=== PATIENT | female | born 1980 | race African-American/Black ===

== ENCOUNTER 2020-12-20 05:11 | Emergency (ER) | payer MEDICAID ==
[~2020-12-20] VITALS: Ht 170.2 cm; Wt 91.0 kg
[2020-12-20 07:22] LABS: HEMATOCRIT. 47.5 % (36.0-48.0); HEMOGLOBIN. 15.2 g/dL (12.0-16.0); MEAN CORPUSCULAR HEMOGLOBIN 32.6 pg (28.0-32.0); MEAN CORPUSCULAR VOLUME 101.7 fL (81.0-99.0); MEAN PLATELET VOLUME 9.6 fl (7.4-10.4); PLATELET 183 x1000/uL (130-400); RED BLOOD CELL COUNT 4.67 mill/uL (4.2-5.4); RED CELL DISTRIBUTION WIDTH 18.1 % (11.6-14.6)
[2020-12-20 08:17] LABS: PLATELET ESTIMATE NORMAL
[2020-12-20] MEDS ORDERED: SODIUM CHLORIDE 0.9% 1,000 ML IV ONE (09:30)
[2020-12-20 10:05] LABS: CHLORIDE 102 mEq/L (98-107)
[2020-12-20 10:09] LABS: ETHANOL BLOOD < 10 mg/dL
[2020-12-20 10:55] VITALS: BP 175/101
== END 2020-12-20 10:56 | disposition home or self-care (01) ==
LOC: ER 05:11
DX: S09.8XXA Other specified injuries of head, initial encounter (principal); E11.65 Type 2 diabetes mellitus with hyperglycemia; F14.10 Cocaine abuse, uncomplicated; I69.328 Other speech and language deficits following cerebral infarction; W01.0XXA Fall on same level from slipping, tripping and stumbling without subsequent striking against object, initial encounter; Y93.89 Activity, other specified; Y92.018 Other place in single-family (private) house as the place of occurrence of the external cause
CPT/HCPCS: 36415; 70450; 80053; 80320; 82962; 85025; 93005; 99285; J7030; A4315; G0480

== ENCOUNTER 2023-04-08 19:00 | Inpatient (IN) | payer MEDICAID ==
[~2023-04-08] VITALS: Ht 167.6 cm; Wt 102.2 kg
[~2023-04-08 19:00] MED LIST: ATOR40TA70 PO; CLOP-31 PO; CYAN100T43 PO; DIVA-75 PO; DIVA500T3 PO; FOLI-43 MT; INSU100I28 SQ; LOSA100T4 PO; OXYB5TAB17 MT; QUET300T2 PO
[2023-04-08] MEDS ORDERED: INSULIN REGULAR (HUMULIN R) 300UNITS/3ML VIAL IV ONE (19:30)
[2023-04-08] MEDS ORDERED: SODIUM CHLORIDE 0.9% 1,000 ML IV ONE ×2 (19:30→23:45)
[2023-04-08] MEDS ORDERED: FUROSEMIDE 20MG/2ML VIAL IVP ONE (20:00)
[2023-04-08 21:57] LABS: BG BASE EXCESS -27.3 mmol/L (-2.0-2.0); BG CARBOXYHEMOGLOBIN 0.7 % (0.5-1.5); BG DEOXYHEMOGLOBIN 2.4 % (0.0-5.0); BG FRACTION INSPIRED OXYGEN 21; BG METHEMOGLOBIN 0.5 % (0.0-1.5); BG OXYGEN SATURATION 97.6 % (92.0-98.5); BG OXYHEMOGLOBIN 96.4 % (94.0-97.0); BG PCO2 13.5 mmHg (35.0-45.0); BG PH 6.964 (7.350-7.450); BG PO2 128.7 mmHg (75.0-100.0); BG SAMPLE SITE RIGHT BRACHIAL; BG TOTAL HEMOGLOBIN 14.3 g/dL (12.0-18.0); BG VENT MODE ROOM AIR
[2023-04-08 23:22] LABS: CHLORIDE 95 mEq/L (98-107); INDEX HEMOLYSI 2 (1-3); INDEX ICTERIC 1 (1-4); INDEX LIPEMIC 1 (1-3); SODIUM 125 mEq/L (136-145)
[2023-04-08] MEDS ORDERED: SODIUM BICARBONATE 150 MEQ in SODIUM CHLORIDE 0.45% 1,000 ML IV SCH (23:30)
[2023-04-08 23:35] LABS: ALANINE AMINOTRANSFERASE 15 IU/L (13-61); ALBUMIN 3.3 g/dL (3.4-5.0); ASPARTATE AMINOTRANSFERASE 17 IU/L (15-37); BILIRUBIN TOTAL 0.5 mg/dL (0.1-1.0); CALCIUM 9.5 mg/dL (8.5-10.1); CREATININE 1.6 mg/dL (0.6-1.3); PROTEIN TOTAL 8.6 g/dL (6.0-8.3); UREA NITROGEN BLOOD 22 mg/dL (7-21)
[2023-04-08 23:37] LABS: HEMATOCRIT. 52.9 % (36.0-48.0); HEMOGLOBIN. 13.8 g/dL (12.0-16.0); MEAN CORPUSCULAR HEMOGLOBIN 29.9 pg (28.0-32.0); MEAN CORPUSCULAR HGB CONC 26.1 g/dL (31.0-37.0); MEAN CORPUSCULAR VOLUME 114.4 fL (81.0-99.0); MEAN PLATELET VOLUME 9.4 fl (7.4-10.4); PLATELET 282 x1000/uL (130-400); RED BLOOD CELL COUNT 4.62 mill/uL (4.2-5.4); RED CELL DISTRIBUTION WIDTH 19.8 % (11.6-14.6); WHITE BLOOD COUNT 15.7 x1000/uL (4.5-11.0)
[2023-04-08] MEDS ORDERED: SODIUM BICARBONATE 8.4% 1 MEQ/ML 50ML SYR IV NR (23:45)
[2023-04-08 23:54] LABS: DIFFERENTIAL COMMENT 1
[2023-04-09] VITALS (23 sets, daily range): BP systolic 147–191; BP diastolic 70–125; PULSE 101–127; RESP 12–18; TEMP 97.4–98.3
[2023-04-09 00:04] LABS: LACTIC ACID 2.7 mmol/L (0.4-2.0)
[2023-04-09 00:05] LABS: CARBON DIOXIDE 4 mEq/L (21-32); POTASSIUM 6.3 mEq/L (3.5-5.1)
[2023-04-09] MEDS ORDERED: INSULIN REGULAR (HUMULIN R) 300UNITS/3ML VIAL IV NR (00:45)
[2023-04-09 00:49] LABS: HCG SCREEN NEGATIVE
[2023-04-09 02:50] LABS: BETA HYDROXYBUTYRATE 2.9 mMol/L (0.0-0.3)
[2023-04-09 04:13] LABS: CHLORIDE 101 mEq/L (98-107); INDEX HEMOLYSI 4 (1-3); INDEX ICTERIC 1 (1-4); INDEX LIPEMIC 1 (1-3); SODIUM 133 mEq/L (136-145)
[2023-04-09 04:21] LABS: ALANINE AMINOTRANSFERASE 16 IU/L (13-61); ASPARTATE AMINOTRANSFERASE 27 IU/L (15-37); BILIRUBIN TOTAL 0.5 mg/dL (0.1-1.0); CALCIUM 8.9 mg/dL (8.5-10.1); CREATININE 1.6 mg/dL (0.6-1.3); PHOSPHORUS 7.1 mg/dL (2.5-4.9); PROTEIN TOTAL 7.8 g/dL (6.0-8.3); UREA NITROGEN BLOOD 23 mg/dL (7-21)
[2023-04-09 04:25] LABS: POTASSIUM 5.5 mEq/L (3.5-5.1)
[2023-04-09 04:26] LABS: CARBON DIOXIDE 6 mEq/L (21-32)
[2023-04-09 04:27] LABS: GLUCOSE 604 mg/dL (70-105)
[2023-04-09 05:31] LABS: PLATELET ESTIMATE NORMAL
[2023-04-09] MEDS ORDERED: SODIUM CHLORIDE 0.9% 1,000 ML IV ONE (07:45)
[2023-04-09 08:16] LABS: CHLORIDE 105 mEq/L (98-107); INDEX HEMOLYSI 3 (1-3); INDEX ICTERIC 1 (1-4); INDEX LIPEMIC 1 (1-3); POTASSIUM 4.1 mEq/L (3.5-5.1); SODIUM 136 mEq/L (136-145)
[2023-04-09 08:24] LABS: ALANINE AMINOTRANSFERASE 14 IU/L (13-61); ASPARTATE AMINOTRANSFERASE 25 IU/L (15-37); BILIRUBIN TOTAL 0.5 mg/dL (0.1-1.0); CALCIUM 8.9 mg/dL (8.5-10.1); CREATININE 1.4 mg/dL (0.6-1.3); GLUCOSE 308 mg/dL (70-105); PHOSPHORUS 4.2 mg/dL (2.5-4.9); PROTEIN TOTAL 7.9 g/dL (6.0-8.3); UREA NITROGEN BLOOD 25 mg/dL (7-21)
[2023-04-09 08:43] LABS: BG CARBOXYHEMOGLOBIN 0.8 % (0.5-1.5); BG DEOXYHEMOGLOBIN 1.7 % (0.0-5.0); BG HCO3 ACT 9.2 mmol/L (22.0-26.0); BG METHEMOGLOBIN 0.5 % (0.0-1.5); BG OXYGEN SATURATION 98.3 % (92.0-98.5); BG PH 7.201 (7.350-7.450); BG PO2 112.2 mmHg (75.0-100.0); BG SAMPLE SITE RIGHT RADIAL; BG TOTAL HEMOGLOBIN 13.6 g/dL (12.0-18.0); BG VENT MODE NASAL CANNULA
[2023-04-09] MEDS: SODIUM CHLORIDE 0.9% 1,000 ML IV SCH ×2 (08:47→14:40)
[2023-04-09 09:04] LABS: CARBON DIOXIDE 9 mEq/L (21-32)
[2023-04-09 09:36] LABS: BASOPHILS % 0.7 % (0.0-2.0); EOSINOPHILS % 0.3 % (0.0-5.0); HEMATOCRIT. 39.6 % (36.0-48.0); HEMOGLOBIN. 12.2 g/dL (12.0-16.0); LYMPHOCYTES % 11.1 % (20.0-50.0); MEAN CORPUSCULAR HEMOGLOBIN 29.2 pg (28.0-32.0); MEAN CORPUSCULAR HGB CONC 30.9 g/dL (31.0-37.0); MEAN CORPUSCULAR VOLUME 94.7 fL (81.0-99.0); MEAN PLATELET VOLUME 8.6 fl (7.4-10.4); NEUTROPHILS % 74.9 % (40.0-76.0); PLATELET 249 x1000/uL (130-400); RED BLOOD CELL COUNT 4.18 mill/uL (4.2-5.4); RED CELL DISTRIBUTION WIDTH 17.7 % (11.6-14.6); WHITE BLOOD COUNT 14.4 x1000/uL (4.5-11.0)
[2023-04-09 14:55] LABS: CHLORIDE 111 mEq/L (98-107); INDEX HEMOLYSI 1 (1-3); INDEX ICTERIC 1 (1-4); INDEX LIPEMIC 1 (1-3); POTASSIUM 3.9 mEq/L (3.5-5.1); SODIUM 140 mEq/L (136-145)
[2023-04-09 14:58] LABS: CARBON DIOXIDE 18 mEq/L (21-32); GLUCOSE 104 mg/dL (70-105); UREA NITROGEN BLOOD 21 mg/dL (7-21)
[2023-04-09 15:01] LABS: CREATININE 1.1 mg/dL (0.6-1.3); PHOSPHORUS 2.6 mg/dL (2.5-4.9)
[2023-04-09] MEDS ORDERED: CEFTRIAXONE 1GM PREMIX 50 ML IV SCH (15:15)
[2023-04-09] MEDS ORDERED: IPRATROPIUM/ALBUTEROL 0.5-3(2.5)MG/3ML NEB HHN PRN (15:15)
[2023-04-09] MEDS: DEXT 5%/0.9% NACL 1,000 ML IV SCH ×2 (15:38→22:25)
[2023-04-09] MEDS: HYDRALAZINE 20MG/ML VIAL IV PRN (16:01)
[2023-04-09] MEDS: INSULIN REGULAR 100U/100ML PMX 100 ML IV SCH ×2 (16:13→23:01)
[2023-04-09] MEDS: CEFTRIAXONE 1,000 MG in DEXTROSE 5% WATER 50 ML IV SCH (17:19)
[2023-04-09 20:10] LABS: CHLORIDE 111 mEq/L (98-107); INDEX HEMOLYSI 2 (1-3); INDEX ICTERIC 1 (1-4); INDEX LIPEMIC 1 (1-3); POTASSIUM 3.6 mEq/L (3.5-5.1); SODIUM 139 mEq/L (136-145)
[2023-04-09 20:15] LABS: CALCIUM 8.8 mg/dL (8.5-10.1); CARBON DIOXIDE 14 mEq/L (21-32); CREATININE 0.8 mg/dL (0.6-1.3); GLUCOSE 237 mg/dL (70-105); PHOSPHORUS 2.2 mg/dL (2.5-4.9); UREA NITROGEN BLOOD 18 mg/dL (7-21)
[2023-04-09] MEDS ORDERED: MAGNESIUM 2 G PREMIX 50 ML IV NR (22:21)
[2023-04-10] VITALS (29 sets, daily range): BP systolic 108–174; BP diastolic 45–106; PULSE 89–133; RESP 11–41; TEMP 97.4–98.5
[2023-04-10 00:22] LABS: CHLORIDE 113 mEq/L (98-107); INDEX HEMOLYSI 3 (1-3); INDEX ICTERIC 1 (1-4); INDEX LIPEMIC 1 (1-3); POTASSIUM 3.7 mEq/L (3.5-5.1); SODIUM 139 mEq/L (136-145)
[2023-04-10 00:28] LABS: CALCIUM 8.6 mg/dL (8.5-10.1); CARBON DIOXIDE 16 mEq/L (21-32); CREATININE 0.7 mg/dL (0.6-1.3); GLUCOSE 210 mg/dL (70-105); PHOSPHORUS 1.7 mg/dL (2.5-4.9); UREA NITROGEN BLOOD 17 mg/dL (7-21)
[2023-04-10] MEDS: HYDRALAZINE 20MG/ML VIAL IV PRN ×2 (03:13→08:58)
[2023-04-10] MEDS ORDERED: DIPHENHYDRAMINE 50MG/ML VIAL IV NR (05:15)
[2023-04-10] MEDS ORDERED: LORAZEPAM 2MG/ML CPJ IV NR (05:15)
[2023-04-10] MEDS: DEXT 5%/0.9% NACL 1,000 ML IV SCH (05:50)
[2023-04-10 07:03] LABS: BASOPHILS % 0.4 % (0.0-2.0); EOSINOPHILS % 0.1 % (0.0-5.0); HEMATOCRIT. 43.3 % (36.0-48.0); HEMOGLOBIN. 13.7 g/dL (12.0-16.0); LYMPHOCYTES % 8.9 % (20.0-50.0); MEAN CORPUSCULAR HEMOGLOBIN 29.5 pg (28.0-32.0); MEAN CORPUSCULAR HGB CONC 31.7 g/dL (31.0-37.0); MEAN PLATELET VOLUME 8.9 fl (7.4-10.4); MONOCYTES % 11.6 % (2.0-8.0); PLATELET 245 x1000/uL (130-400); RED BLOOD CELL COUNT 4.65 mill/uL (4.2-5.4); RED CELL DISTRIBUTION WIDTH 18.8 % (11.6-14.6); WHITE BLOOD COUNT 10.2 x1000/uL (4.5-11.0)
[2023-04-10 07:25] LABS: CHLORIDE 113 mEq/L (98-107); INDEX HEMOLYSI 2 (1-3); INDEX ICTERIC 1 (1-4); INDEX LIPEMIC 1 (1-3); POTASSIUM 3.4 mEq/L (3.5-5.1); SODIUM 137 mEq/L (136-145)
[2023-04-10 07:30] LABS: CALCIUM 9.3 mg/dL (8.5-10.1); CARBON DIOXIDE 19 mEq/L (21-32); CREATININE 0.7 mg/dL (0.6-1.3); GLUCOSE 229 mg/dL (70-105); PHOSPHORUS 1.2 mg/dL (2.5-4.9); UREA NITROGEN BLOOD 13 mg/dL (7-21)
[2023-04-10] MEDS: LOSARTAN POTASSIUM 100 MG TABLET PO SCH (08:34)
[2023-04-10] MEDS: DIPHENHYDRAMINE HCL/ZINC ACET 28 GM CREAM TOP SCH ×3 (08:34→21:27)
[2023-04-10] MEDS: CLOPIDOGREL 75MG TABLET PO SCH (08:34)
[2023-04-10] MEDS ORDERED: DEXTROSE 50% WATER 50ML SYRINGE IV PRN (08:45)
[2023-04-10] MEDS: BLOOD SUGAR DIAGNOSTIC STRIP TEST SCH ×4 (08:56→21:21)
[2023-04-10] MEDS: INSULIN LISPRO 100 UNITS/ML SUBCUT SCH ×4 (08:58→21:23)
[2023-04-10] MEDS: METOPROLOL TARTRATE 50MG TABLET PO SCH ×2 (08:58→21:21)
[2023-04-10] MEDS: INSULIN GLARGINE 100 UNITS/ML SUBCUT SCH ×2 (09:22→21:22)
[2023-04-10] MEDS ORDERED: POTASSIUM PHOS,M-BASIC-D-BASIC 20 MMOL in DEXT 5% WATER 243.3333 ML IV NR (11:00)
[2023-04-10] MEDS: CEFTRIAXONE 1,000 MG in DEXTROSE 5% WATER 50 ML IV SCH (16:03)
[2023-04-10] MEDS: DIVALPROEX SODIUM 500MG DR TABLET PO SCH (16:13)
[2023-04-10] MEDS: ATORVASTATIN CALCIUM 40MG TABLET PO SCH (21:21)
[2023-04-10] MEDS: QUETIAPINE FUMARATE 200MG TABLET PO SCH (21:21)
[2023-04-11] VITALS: BP 126/63; PULSE 88; RESP 20; TEMP 99.2
[2023-04-11 04:00] VITALS: BP 121/81; PULSE 100; RESP 20; TEMP 100.7
[2023-04-11] MEDS: DIPHENHYDRAMINE HCL/ZINC ACET 28 GM CREAM TOP SCH ×3 (06:17→21:25)
[2023-04-11] MEDS: BLOOD SUGAR DIAGNOSTIC STRIP TEST SCH ×4 (06:18→21:23)
[2023-04-11 08:00] VITALS: BP 140/95; PULSE 102; RESP 20; TEMP 97.8
[2023-04-11] MEDS: LOSARTAN POTASSIUM 100 MG TABLET PO SCH (09:04)
[2023-04-11] MEDS: METOPROLOL TARTRATE 50MG TABLET PO SCH ×2 (09:04→21:28)
[2023-04-11] MEDS: CLOPIDOGREL 75MG TABLET PO SCH (09:04)
[2023-04-11] MEDS: INSULIN LISPRO 100 UNITS/ML SUBCUT SCH ×4 (09:07→21:00)
[2023-04-11] MEDS: INSULIN GLARGINE 100 UNITS/ML SUBCUT SCH ×2 (09:08→21:24)
[2023-04-11 12:00] VITALS: BP 132/90; PULSE 100; RESP 20; TEMP 97.4
[2023-04-11 16:00] VITALS: BP 132/87; PULSE 101; RESP 20; TEMP 98
[2023-04-11] MEDS: CEFTRIAXONE 1,000 MG in DEXTROSE 5% WATER 50 ML IV SCH (17:37)
[2023-04-11] MEDS: DIVALPROEX SODIUM 500MG DR TABLET PO SCH (17:37)
[2023-04-11 20:00] VITALS: BP 132/76; PULSE 108; RESP 20; TEMP 99.3
[2023-04-11] MEDS: ATORVASTATIN CALCIUM 40MG TABLET PO SCH (21:17)
[2023-04-11] MEDS: QUETIAPINE FUMARATE 200MG TABLET PO SCH (21:18)
[2023-04-12] VITALS: BP 130/70; PULSE 100; RESP 20; TEMP 98.5
[2023-04-12 04:00] VITALS: BP 130/78; PULSE 94; RESP 20; TEMP 97.1
[2023-04-12] MEDS: BLOOD SUGAR DIAGNOSTIC STRIP TEST SCH ×4 (07:40→21:00)
[2023-04-12 08:00] VITALS: PULSE 93; TEMP 97.6
[2023-04-12] MEDS: INSULIN LISPRO 100 UNITS/ML SUBCUT SCH ×4 (08:10→21:00)
[2023-04-12] MEDS: CLOPIDOGREL 75MG TABLET PO SCH (09:00)
[2023-04-12] MEDS: LOSARTAN POTASSIUM 100 MG TABLET PO SCH (09:00)
[2023-04-12] MEDS: METOPROLOL TARTRATE 50MG TABLET PO SCH ×2 (09:00→20:54)
[2023-04-12] MEDS: INSULIN GLARGINE 100 UNITS/ML SUBCUT SCH ×2 (10:00→21:46)
[2023-04-12 12:00] VITALS: BP 158/99; PULSE 93; RESP 20; TEMP 97.6
[2023-04-12] MEDS: HYDRALAZINE 20MG/ML VIAL IV PRN (13:22)
[2023-04-12] MEDS: DIPHENHYDRAMINE HCL/ZINC ACET 28 GM CREAM TOP SCH ×2 (13:26→22:00)
[2023-04-12] MEDS ORDERED: INSU100I28 SQ (14:54)
[2023-04-12 16:00] VITALS: BP 132/74; PULSE 94; RESP 20; TEMP 97.2
[2023-04-12] MEDS: DIVALPROEX SODIUM 500MG DR TABLET PO SCH (17:21)
[2023-04-12] MEDS: CEFTRIAXONE 1,000 MG in DEXTROSE 5% WATER 50 ML IV SCH (17:22)
[2023-04-12 20:00] VITALS: BP 145/76; PULSE 89; RESP 18; TEMP 97.3
[2023-04-12] MEDS: ATORVASTATIN CALCIUM 40MG TABLET PO SCH (20:53)
[2023-04-12] MEDS: QUETIAPINE FUMARATE 200MG TABLET PO SCH (20:54)
[2023-04-13] VITALS: BP 141/84; PULSE 91; RESP 20; TEMP 97.3
[2023-04-13 04:00] VITALS: BP 125/72; PULSE 91; RESP 18; TEMP 97
[2023-04-13] MEDS: DIPHENHYDRAMINE HCL/ZINC ACET 28 GM CREAM TOP SCH ×2 (06:00→13:18)
[2023-04-13] MEDS: BLOOD SUGAR DIAGNOSTIC STRIP TEST SCH ×2 (06:42→12:13)
[2023-04-13 08:00] VITALS: BP 136/84; PULSE 97; RESP 20; TEMP 96.9
[2023-04-13] MEDS: LOSARTAN POTASSIUM 100 MG TABLET PO SCH (08:50)
[2023-04-13] MEDS: METOPROLOL TARTRATE 50MG TABLET PO SCH (08:50)
[2023-04-13] MEDS: CLOPIDOGREL 75MG TABLET PO SCH (08:50)
[2023-04-13] MEDS: INSULIN GLARGINE 100 UNITS/ML SUBCUT SCH (08:53)
[2023-04-13 12:00] VITALS: BP 137/87; PULSE 98; RESP 18; TEMP 97
[2023-04-13] MEDS: INSULIN LISPRO 100 UNITS/ML SUBCUT SCH (12:56)
[2023-04-13 13:01] VITALS: BP 137/87; PULSE 98; TEMP 97; O2SAT 99
[2023-04-13 16:00] VITALS: BP 127/81; PULSE 70; RESP 18; TEMP 97.3
== END 2023-04-13 18:21 | disposition home or self-care (01) | DRG 420 ==
LOC: ER 19:00 → MICUSO 21:47 → CVICU 04-09 12:40 → 7WST 04-10 19:15
PROVIDERS: ADMIT Internal Medicine; ATTEND Internal Medicine
DX: E11.10 Type 2 diabetes mellitus with ketoacidosis without coma (principal); R65.11 Systemic inflammatory response syndrome (SIRS) of non-infectious origin with acute organ dysfunction; G92.8 Other toxic encephalopathy; N17.9 Acute kidney failure, unspecified; E44.1 Mild protein-calorie malnutrition; E87.5 Hyperkalemia; F20.9 Schizophrenia, unspecified; E86.9 Volume depletion, unspecified; E66.9 Obesity, unspecified; I10 Essential (primary) hypertension; R06.03 Acute respiratory distress; Z20.822 Contact with and (suspected) exposure to COVID-19; R00.0 Tachycardia, unspecified; F31.9 Bipolar disorder, unspecified; Z68.36 Body mass index [BMI] 36.0-36.9, adult; J44.9 Chronic obstructive pulmonary disease, unspecified; Z86.73 Personal history of transient ischemic attack (TIA), and cerebral infarction without residual deficits
CPT/HCPCS: 36415; 36600; 71045; 80048; 80053; 82010; 82375; 82805; 82947; 82962; 83036; 83605; 83735; 84100; 84145; 84703; 85025; 87426; 99285; J0360; J0696; J1200; J1815; J2060; J3475; J3490; J7030; J7042; J7060

== ENCOUNTER 2023-04-21 19:22 | Inpatient (IN) | payer MEDICAID ==
[~2023-04-21] VITALS: Ht 165.1 cm; Wt 74.4 kg
[~2023-04-21 19:22] MED LIST changes: +LOSA-415 PO; -LOSA100T4 PO
[2023-04-21] MEDS ORDERED: SODIUM CHLORIDE 0.9% 1,000 ML IV ONE ×2 (20:00→23:15)
[2023-04-21 21:44] LABS: BASOPHILS % 0.5 % (0.0-2.0); DIFFERENTIAL COMMENT 0; EOSINOPHILS % 0.1 % (0.0-5.0); HEMATOCRIT. 45.7 % (36.0-48.0); HEMOGLOBIN. 13.1 g/dL (12.0-16.0); LYMPHOCYTES % 16.7 % (20.0-50.0); MEAN CORPUSCULAR HGB CONC 28.8 g/dL (31.0-37.0); MEAN CORPUSCULAR VOLUME 104.1 fL (81.0-99.0); MEAN PLATELET VOLUME 8.9 fl (7.4-10.4); MONOCYTES % 7.5 % (2.0-8.0); NEUTROPHILS % 75.2 % (40.0-76.0); PLATELET 228 x1000/uL (130-400); RED BLOOD CELL COUNT 4.39 mill/uL (4.2-5.4); WHITE BLOOD COUNT 10.3 x1000/uL (4.5-11.0)
[2023-04-21 21:50] VITALS: PULSE 121; RESP 18; O2SAT 96
[2023-04-21] MEDS: ALBUTEROL (0.083%) 2.5MG/3ML NEB HHN SCH ×3 (21:50→23:33)
[2023-04-21 21:55] LABS: CHLORIDE 93 mEq/L (98-107); INDEX HEMOLYSI 1 (1-3); INDEX ICTERIC 1 (1-4); INDEX LIPEMIC 1 (1-3); POTASSIUM 5.3 mEq/L (3.5-5.1); SODIUM 127 mEq/L (136-145)
[2023-04-21] MEDS ORDERED: DEXTROSE 50% WATER 50ML SYRINGE IV NR (22:00)
[2023-04-21] MEDS ORDERED: FUROSEMIDE 40MG/4ML VIAL IV NR (22:00)
[2023-04-21] MEDS ORDERED: INSULIN REGULAR (HUMULIN R) 300UNITS/3ML VIAL IV NR (22:00)
[2023-04-21 22:10] LABS: ALANINE AMINOTRANSFERASE 26 IU/L (13-61); ALBUMIN 3.5 g/dL (3.4-5.0); ASPARTATE AMINOTRANSFERASE 25 IU/L (15-37); BILIRUBIN TOTAL 0.5 mg/dL (0.1-1.0); CALCIUM 10.1 mg/dL (8.5-10.1); CREATININE 1.1 mg/dL (0.6-1.3); NT PRO B-TYPE NATRIURETIC PEP 275 pg/mL (5-125); PROTEIN TOTAL 8.7 g/dL (6.0-8.3); T4 FREE 1.41 ng/dL (0.76-1.46); TROPONIN I HIGH SENSITIVITY 32 ng/L (<54); UREA NITROGEN BLOOD 11 mg/dL (7-21)
[2023-04-21 22:14] LABS: CARBON DIOXIDE 5 mEq/L (21-32); GLUCOSE 860 mg/dL (70-105)
[2023-04-21] MEDS ORDERED: SODIUM CHLORIDE 0.9% 1,000 ML IV SCH (22:15)
[2023-04-21 22:20] VITALS: PULSE 118; RESP 18; O2SAT 97
[2023-04-21] MEDS ORDERED: INSULIN REGULAR 100U/100ML PMX 100 ML IV SCH ×3 (22:45→23:00)
[2023-04-21 22:50] VITALS: PULSE 123; RESP 18; O2SAT 97
[2023-04-21] MEDS ORDERED: POTASSIUM CHLORIDE INJ 40 MEQ in SODIUM CHLORIDE 0.9% 230 ML IV PRN (23:00)
[2023-04-21] MEDS ORDERED: SODIUM BICARBONATE 8.4% 1 MEQ/ML 50ML SYR IV NR (23:00)
[2023-04-21] MEDS ORDERED: CALCIUM GLUCONATE 1GM PREMIX 50 ML IV NR (23:00)
[2023-04-21] MEDS ORDERED: KCL 20MEQ/100ML PREMIX 100 ML IV PRN (23:00)
[2023-04-21] MEDS ORDERED: DEXTROSE 50% WATER 50ML SYRINGE IV PRN (23:00)
[2023-04-21] MEDS: BLOOD SUGAR DIAGNOSTIC STRIP TEST SCH (23:02)
[2023-04-21] MEDS: SODIUM CHLORIDE 0.9% 1,000 ML IV SCH (23:02)
[2023-04-21] MEDS ORDERED: ONDANSETRON HCL 4MG/2ML INJ IM ONE (23:15)
[2023-04-21 23:19] LABS: BG BASE EXCESS -20.6 mmol/L (-2.0-2.0); BG CARBOXYHEMOGLOBIN 0.7 % (0.5-1.5); BG DEOXYHEMOGLOBIN 1.6 % (0.0-5.0); BG FRACTION INSPIRED OXYGEN 50; BG HCO3 ACT 5.1 mmol/L (22.0-26.0); BG METHEMOGLOBIN 0.4 % (0.0-1.5); BG OXYGEN SATURATION 98.4 % (92.0-98.5); BG OXYHEMOGLOBIN 97.3 % (94.0-97.0); BG PCO2 13.5 mmHg (35.0-45.0); BG PH 7.191 (7.350-7.450); BG PO2 135.6 mmHg (75.0-100.0); BG SAMPLE SITE LEFT RADIAL; BG TOTAL HEMOGLOBIN 13.3 g/dL (12.0-18.0); BG VENT MODE MASK - SIMPLE
[2023-04-21 23:53] LABS: BASOPHILS % 0.2 % (0.0-2.0); CALCIUM 9.1 mg/dL (8.5-10.1); CHLORIDE 101 mEq/L (98-107); DIFFERENTIAL COMMENT 0; HEMATOCRIT. 42.5 % (36.0-48.0); HEMOGLOBIN. 12.3 g/dL (12.0-16.0); INDEX HEMOLYSI 2 (1-3); INDEX ICTERIC 1 (1-4); INDEX LIPEMIC 1 (1-3); LYMPHOCYTES % 12.6 % (20.0-50.0); MEAN CORPUSCULAR HEMOGLOBIN 30.6 pg (28.0-32.0); MEAN CORPUSCULAR VOLUME 105.8 fL (81.0-99.0); MEAN PLATELET VOLUME 9.4 fl (7.4-10.4); MONOCYTES % 6.9 % (2.0-8.0); NEUTROPHILS % 80.3 % (40.0-76.0); PLATELET 201 x1000/uL (130-400); POTASSIUM 4.3 mEq/L (3.5-5.1); RED BLOOD CELL COUNT 4.01 mill/uL (4.2-5.4); RED CELL DISTRIBUTION WIDTH 20.5 % (11.6-14.6); SODIUM 135 mEq/L (136-145)
[2023-04-22] VITALS (29 sets, daily range): BP systolic 105–155; BP diastolic 71–99; PULSE 100–117; RESP 11–20; TEMP 98.4–98.8
[2023-04-22] LABS: PHOSPHORUS 4.1 mg/dL (2.5-4.9); UREA NITROGEN BLOOD 10 mg/dL (7-21)
[2023-04-22] MEDS: BLOOD SUGAR DIAGNOSTIC STRIP TEST SCH ×13 (01:00→21:08)
[2023-04-22 01:08] LABS: CARBON DIOXIDE 6 mEq/L (21-32)
[2023-04-22 01:09] LABS: GLUCOSE 763 mg/dL (70-105)
[2023-04-22] MEDS: DEXT 5%/0.9% NACL 1,000 ML IV SCH ×3 (04:13→14:44)
[2023-04-22] MEDS: SODIUM CHLORIDE 0.9% 1,000 ML IV SCH ×2 (04:33→06:11)
[2023-04-22 04:55] LABS: CHLORIDE 103 mEq/L (98-107); INDEX HEMOLYSI 1 (1-3); INDEX ICTERIC 1 (1-4); INDEX LIPEMIC 1 (1-3); POTASSIUM 3.3 mEq/L (3.5-5.1); SODIUM 140 mEq/L (136-145)
[2023-04-22 05:02] LABS: CALCIUM 9.8 mg/dL (8.5-10.1); CARBON DIOXIDE 11 mEq/L (21-32); CREATININE 1.1 mg/dL (0.6-1.3); GLUCOSE 277 mg/dL (70-105); PHOSPHORUS 2.3 mg/dL (2.5-4.9); UREA NITROGEN BLOOD 10 mg/dL (7-21)
[2023-04-22] MEDS ORDERED: POTASSIUM CHLORIDE INJ 40 MEQ in DEXT 5% WATER 250 ML IV PRN (05:30)
[2023-04-22] MEDS ORDERED: LORAZEPAM 2MG/ML CPJ IV PRN (05:30)
[2023-04-22] MEDS ORDERED: ONDANSETRON HCL 4MG/2ML INJ IV PRN (05:30)
[2023-04-22] MEDS ORDERED: INSULIN REGULAR 100U/100ML PMX 100 ML IV SCH (06:45)
[2023-04-22 07:59] LABS: BG BASE EXCESS -9.4 mmol/L (-2.0-2.0); BG DEOXYHEMOGLOBIN 4.2 % (0.0-5.0); BG FRACTION INSPIRED OXYGEN 21; BG HCO3 ACT 16.6 mmol/L (22.0-26.0); BG METHEMOGLOBIN 0.3 % (0.0-1.5); BG OXYGEN SATURATION 95.8 % (92.0-98.5); BG OXYHEMOGLOBIN 95.5 % (94.0-97.0); BG PCO2 36.7 mmHg (35.0-45.0); BG PH 7.274 (7.350-7.450); BG PO2 82.1 mmHg (75.0-100.0); BG SAMPLE SITE RIGHT BRACHIAL; BG TOTAL HEMOGLOBIN 13.5 g/dL (12.0-18.0); BG VENT MODE ROOM AIR
[2023-04-22 10:06] LABS: CHLORIDE 111 mEq/L (98-107); INDEX HEMOLYSI 2 (1-3); INDEX ICTERIC 1 (1-4); INDEX LIPEMIC 1 (1-3); POTASSIUM 3.3 mEq/L (3.5-5.1); SODIUM 141 mEq/L (136-145)
[2023-04-22 10:12] LABS: CALCIUM 8.6 mg/dL (8.5-10.1); CARBON DIOXIDE 20 mEq/L (21-32); CREATININE 0.8 mg/dL (0.6-1.3); GLUCOSE 182 mg/dL (70-105); PHOSPHORUS 1.9 mg/dL (2.5-4.9); UREA NITROGEN BLOOD 8 mg/dL (7-21)
[2023-04-22] MEDS ORDERED: KCL 20MEQ/100ML PREMIX 100 ML IV NR (10:30)
[2023-04-22] MEDS ORDERED: DEXTROSE 50% WATER 50ML SYRINGE IV PRN (11:00)
[2023-04-22] MEDS ORDERED: MAGNESIUM 1 G PREMIX 100 ML IV NR (11:30)
[2023-04-22] MEDS ORDERED: INSULIN GLARGINE 100 UNITS/ML SUBCUT NR (11:30)
[2023-04-22] MEDS: INSULIN LISPRO 100 UNITS/ML SUBCUT SCH ×3 (11:44→21:09)
[2023-04-22] MEDS ORDERED: POTASSIUM PHOS,M-BASIC-D-BASIC 15 MMOL in DEXT 5% WATER 245 ML IV NR (12:30)
[2023-04-22] MEDS ORDERED: IPRATROPIUM/ALBUTEROL 0.5-3(2.5)MG/3ML NEB HHN PRN (13:00)
[2023-04-22] MEDS: PANTOPRAZOLE SODIUM 40 MG/VIAL IV SCH (13:30)
[2023-04-22 14:33] LABS: CHLORIDE 110 mEq/L (98-107); INDEX HEMOLYSI 2 (1-3); INDEX ICTERIC 1 (1-4); INDEX LIPEMIC 1 (1-3); POTASSIUM 4.4 mEq/L (3.5-5.1); SODIUM 140 mEq/L (136-145)
[2023-04-22 14:39] LABS: CALCIUM 8.6 mg/dL (8.5-10.1); CARBON DIOXIDE 20 mEq/L (21-32); CREATININE 0.7 mg/dL (0.6-1.3); GLUCOSE 183 mg/dL (70-105); UREA NITROGEN BLOOD 8 mg/dL (7-21)
[2023-04-22 18:21] LABS: CHLORIDE 110 mEq/L (98-107); INDEX HEMOLYSI 2 (1-3); INDEX ICTERIC 1 (1-4); INDEX LIPEMIC 1 (1-3); POTASSIUM 4.3 mEq/L (3.5-5.1); SODIUM 136 mEq/L (136-145)
[2023-04-22 18:26] LABS: CALCIUM 7.9 mg/dL (8.5-10.1); CARBON DIOXIDE 17 mEq/L (21-32); CREATININE 0.7 mg/dL (0.6-1.3); GLUCOSE 322 mg/dL (70-105); PHOSPHORUS 3.1 mg/dL (2.5-4.9); UREA NITROGEN BLOOD 6 mg/dL (7-21)
[2023-04-23] VITALS: BP 131/87; PULSE 111; RESP 17; TEMP 98.6
[2023-04-23] MEDS: DEXT 5%/0.9% NACL 1,000 ML IV SCH (03:50)
[2023-04-23 04:00] VITALS: BP 142/90; PULSE 108; RESP 19; TEMP 98.9
[2023-04-23 06:58] LABS: CHLORIDE 106 mEq/L (98-107); INDEX HEMOLYSI 1 (1-3); INDEX ICTERIC 1 (1-4); INDEX LIPEMIC 1 (1-3); POTASSIUM 3.9 mEq/L (3.5-5.1); SODIUM 137 mEq/L (136-145)
[2023-04-23 07:05] LABS: CALCIUM 8.7 mg/dL (8.5-10.1); CARBON DIOXIDE 20 mEq/L (21-32); CREATININE 0.7 mg/dL (0.6-1.3); GLUCOSE 265 mg/dL (70-105); PHOSPHORUS 1.7 mg/dL (2.5-4.9); UREA NITROGEN BLOOD 6 mg/dL (7-21)
[2023-04-23] MEDS: BLOOD SUGAR DIAGNOSTIC STRIP TEST SCH ×4 (07:40→21:00)
[2023-04-23 08:00] VITALS: BP 161/88; PULSE 114; RESP 18; TEMP 97.6
[2023-04-23] MEDS: PANTOPRAZOLE SODIUM 40 MG/VIAL IV SCH (08:57)
[2023-04-23] MEDS: QUETIAPINE FUMARATE 50MG TABLET PO SCH (09:00)
[2023-04-23] MEDS: INSULIN LISPRO 100 UNITS/ML SUBCUT SCH ×4 (09:00→21:39)
[2023-04-23] MEDS: LOSARTAN 100 MG TABLET PO SCH (09:37)
[2023-04-23] MEDS: DIVALPROEX SODIUM 500MG DR TABLET PO SCH ×2 (09:38→18:00)
[2023-04-23] MEDS: CLOPIDOGREL 75MG TABLET PO SCH (09:38)
[2023-04-23 12:00] VITALS: BP 157/82; PULSE 114; PULSE 83; RESP 18; RESP 20; TEMP 97
[2023-04-23] MEDS: INSULIN GLARGINE 100 UNITS/ML SUBCUT SCH ×2 (12:28→21:37)
[2023-04-23 16:00] VITALS: BP 128/87; PULSE 108; RESP 18; TEMP 98.3
[2023-04-23] MEDS ORDERED: SODIUM BICARBONATE 8.4% 1 MEQ/ML 50ML SYR IV NR (19:30)
[2023-04-23 20:00] VITALS: BP 133/85; PULSE 103; RESP 18; TEMP 98.5
[2023-04-23] MEDS: ATORVASTATIN CALCIUM 40MG TABLET PO SCH (21:27)
[2023-04-24] VITALS: BP 136/71; PULSE 95; RESP 18; TEMP 97.8
[2023-04-24 04:00] VITALS: BP 141/67; PULSE 102; RESP 19; TEMP 98.8
[2023-04-24 06:50] LABS: BASOPHILS % 0.3 % (0.0-2.0); EOSINOPHILS % 0.8 % (0.0-5.0); HEMATOCRIT. 38.2 % (36.0-48.0); HEMOGLOBIN. 12.5 g/dL (12.0-16.0); LYMPHOCYTES % 40.1 % (20.0-50.0); MEAN CORPUSCULAR HEMOGLOBIN 30.2 pg (28.0-32.0); MEAN CORPUSCULAR HGB CONC 32.8 g/dL (31.0-37.0); MEAN CORPUSCULAR VOLUME 92.1 fL (81.0-99.0); MEAN PLATELET VOLUME 8.1 fl (7.4-10.4); MONOCYTES % 7.7 % (2.0-8.0); NEUTROPHILS % 51.1 % (40.0-76.0); PLATELET 139 x1000/uL (130-400); RED BLOOD CELL COUNT 4.15 mill/uL (4.2-5.4); RED CELL DISTRIBUTION WIDTH 18.9 % (11.6-14.6); WHITE BLOOD COUNT 4.8 x1000/uL (4.5-11.0)
[2023-04-24] MEDS: INSULIN LISPRO 100 UNITS/ML SUBCUT SCH ×4 (07:26→20:15)
[2023-04-24] MEDS: BLOOD SUGAR DIAGNOSTIC STRIP TEST SCH ×4 (07:26→20:21)
[2023-04-24 07:45] LABS: CHLORIDE 117 mEq/L (98-107); INDEX HEMOLYSI 1 (1-3); INDEX ICTERIC 1 (1-4); INDEX LIPEMIC 1 (1-3); POTASSIUM 3.3 mEq/L (3.5-5.1); SODIUM 141 mEq/L (136-145)
[2023-04-24 07:54] LABS: ALBUMIN 2.3 g/dL (3.4-5.0); CALCIUM 8.6 mg/dL (8.5-10.1); CARBON DIOXIDE 25 mEq/L (21-32); CREATININE 0.7 mg/dL (0.6-1.3); GLUCOSE 111 mg/dL (70-105); UREA NITROGEN BLOOD 3 mg/dL (7-21)
[2023-04-24 08:00] VITALS: BP_SYST 146; BP_SYST 89; BP_DIAS 55; BP_DIAS 82; PULSE 61; PULSE 91; RESP 20; TEMP 97.7; TEMP 98.6
[2023-04-24] MEDS: LOSARTAN 100 MG TABLET PO SCH (09:02)
[2023-04-24] MEDS: FAMOTIDINE 20MG/2ML VIAL IV SCH ×2 (09:02→20:13)
[2023-04-24] MEDS: QUETIAPINE FUMARATE 50MG TABLET PO SCH (09:02)
[2023-04-24] MEDS: CLOPIDOGREL 75MG TABLET PO SCH (09:02)
[2023-04-24] MEDS: DIVALPROEX SODIUM 500MG DR TABLET PO SCH ×2 (09:02→17:09)
[2023-04-24] MEDS: INSULIN GLARGINE 100 UNITS/ML SUBCUT SCH ×2 (09:20→22:42)
[2023-04-24 12:00] VITALS: BP 128/87; PULSE 105; RESP 20; TEMP 98.6
[2023-04-24 15:34] LABS: PREALBUMIN 11.5 mg/dL (20.0-40.0)
[2023-04-24 16:00] VITALS: BP 136/78; PULSE 103; RESP 20; TEMP 97.9
[2023-04-24 19:02] VITALS: BP 127/67; PULSE 94; RESP 18; TEMP 98.1
[2023-04-24] MEDS: ATORVASTATIN CALCIUM 40MG TABLET PO SCH (20:13)
[2023-04-25] VITALS: BP 129/72; PULSE 110; RESP 18; TEMP 99.1
[2023-04-25 04:00] VITALS: BP 144/89; PULSE 103; RESP 18; TEMP 98.6
[2023-04-25 08:00] VITALS: BP 134/90; PULSE 110; RESP 20; TEMP 97.2
[2023-04-25] MEDS: BLOOD SUGAR DIAGNOSTIC STRIP TEST SCH ×4 (08:00→20:50)
[2023-04-25] MEDS: INSULIN LISPRO 100 UNITS/ML SUBCUT SCH ×4 (08:10→20:50)
[2023-04-25] MEDS: QUETIAPINE FUMARATE 50MG TABLET PO SCH (09:43)
[2023-04-25] MEDS: LOSARTAN 100 MG TABLET PO SCH (09:43)
[2023-04-25] MEDS: DIVALPROEX SODIUM 500MG DR TABLET PO SCH ×2 (09:44→17:49)
[2023-04-25] MEDS: CLOPIDOGREL 75MG TABLET PO SCH (09:44)
[2023-04-25] MEDS: FAMOTIDINE 20MG/2ML VIAL IV SCH ×2 (09:44→20:45)
[2023-04-25] MEDS: INSULIN GLARGINE 100 UNITS/ML SUBCUT SCH ×2 (09:46→20:50)
[2023-04-25 12:00] VITALS: BP 110/81; PULSE 86; RESP 18; TEMP 97
[2023-04-25 16:00] VITALS: BP 119/87; PULSE 98; RESP 20; TEMP 97
[2023-04-25 20:15] VITALS: BP 142/87; PULSE 96; RESP 18; TEMP 98.1
[2023-04-25] MEDS: ATORVASTATIN CALCIUM 40MG TABLET PO SCH (20:44)
[2023-04-26 04:15] VITALS: BP 126/81; PULSE 95; RESP 18; TEMP 97.9
[2023-04-26] MEDS: BLOOD SUGAR DIAGNOSTIC STRIP TEST SCH ×4 (07:58→21:05)
[2023-04-26] MEDS: INSULIN LISPRO 100 UNITS/ML SUBCUT SCH ×4 (07:59→21:12)
[2023-04-26 08:00] VITALS: BP 158/88; PULSE 94; RESP 18; TEMP 97.3
[2023-04-26] MEDS: CLOPIDOGREL 75MG TABLET PO SCH (08:38)
[2023-04-26] MEDS: LOSARTAN 100 MG TABLET PO SCH (08:38)
[2023-04-26] MEDS: QUETIAPINE FUMARATE 50MG TABLET PO SCH (08:38)
[2023-04-26] MEDS: DIVALPROEX SODIUM 500MG DR TABLET PO SCH ×2 (08:39→18:05)
[2023-04-26] MEDS: FAMOTIDINE 20MG/2ML VIAL IV SCH (08:39)
[2023-04-26] MEDS: INSULIN GLARGINE 100 UNITS/ML SUBCUT SCH ×2 (11:49→21:11)
[2023-04-26 12:00] VITALS: BP 150/77; PULSE 96; RESP 20; TEMP 97.6
[2023-04-26 16:00] VITALS: BP 139/84; PULSE 95; RESP 19; TEMP 96.3
[2023-04-26] MEDS ORDERED: QUETIAPINE FUMARATE 200MG TABLET PO SCH (19:06)
[2023-04-26 20:00] VITALS: BP 132/83; PULSE 85; RESP 18; TEMP 97.8
[2023-04-26] MEDS: ATORVASTATIN CALCIUM 40MG TABLET PO SCH (21:06)
[2023-04-26] MEDS: FAMOTIDINE 20MG TABLET PO SCH (21:06)
[2023-04-27] MEDS: BLOOD SUGAR DIAGNOSTIC STRIP TEST SCH ×4 (07:00→21:23)
[2023-04-27] MEDS: INSULIN LISPRO 100 UNITS/ML SUBCUT SCH ×4 (07:50→21:22)
[2023-04-27 08:00] VITALS: BP 142/88; PULSE 89; RESP 20; TEMP 97.9
[2023-04-27] MEDS: CLOPIDOGREL 75MG TABLET PO SCH (08:53)
[2023-04-27] MEDS: FAMOTIDINE 20MG TABLET PO SCH ×2 (08:53→21:16)
[2023-04-27] MEDS: DIVALPROEX SODIUM 500MG DR TABLET PO SCH ×2 (08:53→17:48)
[2023-04-27] MEDS: LOSARTAN 100 MG TABLET PO SCH (08:54)
[2023-04-27] MEDS: INSULIN GLARGINE 100 UNITS/ML SUBCUT SCH ×2 (10:21→21:22)
[2023-04-27 16:00] VITALS: BP 146/90; PULSE 114; RESP 20; TEMP 97.9
[2023-04-27 20:00] VITALS: BP 143/74; PULSE 90; RESP 18; TEMP 99
[2023-04-27] MEDS: ATORVASTATIN CALCIUM 40MG TABLET PO SCH (21:16)
[2023-04-28 04:00] VITALS: BP 109/79; PULSE 89; RESP 18; TEMP 97.9
[2023-04-28] MEDS: BLOOD SUGAR DIAGNOSTIC STRIP TEST SCH ×4 (06:41→21:00)
[2023-04-28] MEDS: INSULIN LISPRO 100 UNITS/ML SUBCUT SCH ×4 (06:59→21:00)
[2023-04-28 08:00] VITALS: BP 112/75; PULSE 94; RESP 20; TEMP 97.9
[2023-04-28] MEDS: FAMOTIDINE 20MG TABLET PO SCH ×2 (08:48→20:42)
[2023-04-28] MEDS: CLOPIDOGREL 75MG TABLET PO SCH (08:48)
[2023-04-28] MEDS: LOSARTAN 100 MG TABLET PO SCH (08:49)
[2023-04-28] MEDS: DIVALPROEX SODIUM 500MG DR TABLET PO SCH ×2 (08:52→17:00)
[2023-04-28] MEDS: ACETAMINOPHEN 325MG TABLET PO PRN (08:53)
[2023-04-28] MEDS: INSULIN GLARGINE 100 UNITS/ML SUBCUT SCH ×2 (10:00→22:00)
[2023-04-28 12:00] VITALS: BP 122/96; PULSE 90; RESP 20; TEMP 98.2
[2023-04-28 16:00] VITALS: BP 135/83; PULSE 90; RESP 20; TEMP 97.9
[2023-04-28 20:00] VITALS: BP 182/97; PULSE 105; RESP 18; TEMP 97.9
[2023-04-28] MEDS: QUETIAPINE FUMARATE 50MG TABLET PO SCH (20:42)
[2023-04-28] MEDS: ATORVASTATIN CALCIUM 40MG TABLET PO SCH (20:42)
[2023-04-28] MEDS: QUETIAPINE FUMARATE 200MG TABLET PO SCH (20:43)
[2023-04-29] VITALS: BP 99/61; PULSE 94; RESP 17; TEMP 99.1
[2023-04-29] MEDS: BLOOD SUGAR DIAGNOSTIC STRIP TEST SCH ×4 (07:20→21:07)
[2023-04-29 07:48] VITALS: BP 143/68; PULSE 84; RESP 18; TEMP 97.9
[2023-04-29] MEDS: CLOPIDOGREL 75MG TABLET PO SCH (08:51)
[2023-04-29] MEDS: DIVALPROEX SODIUM 500MG DR TABLET PO SCH ×2 (08:51→17:00)
[2023-04-29] MEDS: FAMOTIDINE 20MG TABLET PO SCH ×2 (08:51→20:43)
[2023-04-29] MEDS: ACETAMINOPHEN 325MG TABLET PO PRN (08:52)
[2023-04-29] MEDS: LOSARTAN 100 MG TABLET PO SCH (09:00)
[2023-04-29] MEDS: INSULIN GLARGINE 100 UNITS/ML SUBCUT SCH ×2 (10:00→21:31)
[2023-04-29 12:10] VITALS: BP 117/87; PULSE 87; RESP 18; TEMP 97
[2023-04-29] MEDS: INSULIN LISPRO 100 UNITS/ML SUBCUT SCH ×3 (12:15→21:31)
[2023-04-29 16:20] VITALS: BP 133/66; PULSE 87; RESP 18; TEMP 97
[2023-04-29 20:00] VITALS: BP 130/84; PULSE 94; RESP 18; TEMP 99
[2023-04-29] MEDS: QUETIAPINE FUMARATE 200MG TABLET PO SCH (20:43)
[2023-04-29] MEDS: QUETIAPINE FUMARATE 50MG TABLET PO SCH (20:44)
[2023-04-29] MEDS: ATORVASTATIN CALCIUM 40MG TABLET PO SCH (20:44)
[2023-04-30] VITALS: BP 135/79; PULSE 96; RESP 18; TEMP 98.4
[2023-04-30] MEDS: BLOOD SUGAR DIAGNOSTIC STRIP TEST SCH ×4 (07:20→21:35)
[2023-04-30 08:00] VITALS: BP 138/91; PULSE 99; RESP 19; TEMP 97.9
[2023-04-30] MEDS: DIVALPROEX SODIUM 500MG DR TABLET PO SCH ×2 (09:35→17:11)
[2023-04-30] MEDS: LOSARTAN 100 MG TABLET PO SCH (09:35)
[2023-04-30] MEDS: FAMOTIDINE 20MG TABLET PO SCH ×2 (09:35→21:24)
[2023-04-30] MEDS: CLOPIDOGREL 75MG TABLET PO SCH (09:36)
[2023-04-30] MEDS: INSULIN LISPRO 100 UNITS/ML SUBCUT SCH ×4 (10:13→21:34)
[2023-04-30] MEDS: INSULIN GLARGINE 100 UNITS/ML SUBCUT SCH ×2 (10:26→21:34)
[2023-04-30 12:00] VITALS: BP 127/91; PULSE 101; RESP 18; TEMP 97.7
[2023-04-30 16:00] VITALS: BP 118/74; PULSE 70; RESP 19; TEMP 98.2
[2023-04-30 20:00] VITALS: BP 137/82; PULSE 95; RESP 20; TEMP 97.7
[2023-04-30] MEDS: QUETIAPINE FUMARATE 200MG TABLET PO SCH (21:23)
[2023-04-30] MEDS: QUETIAPINE FUMARATE 50MG TABLET PO SCH (21:23)
[2023-04-30] MEDS: ATORVASTATIN CALCIUM 40MG TABLET PO SCH (21:24)
[2023-05-01 04:00] VITALS: BP 126/76; PULSE 86; RESP 19; TEMP 97.8
[2023-05-01 08:00] VITALS: BP 111/70; PULSE 95; RESP 20; TEMP 97.5
[2023-05-01] MEDS: BLOOD SUGAR DIAGNOSTIC STRIP TEST SCH ×4 (08:19→20:24)
[2023-05-01] MEDS: CLOPIDOGREL 75MG TABLET PO SCH (09:31)
[2023-05-01] MEDS: FAMOTIDINE 20MG TABLET PO SCH ×2 (09:31→21:06)
[2023-05-01] MEDS: DIVALPROEX SODIUM 500MG DR TABLET PO SCH ×2 (09:32→18:01)
[2023-05-01] MEDS: INSULIN LISPRO 100 UNITS/ML SUBCUT SCH ×4 (09:32→21:12)
[2023-05-01] MEDS: LOSARTAN 100 MG TABLET PO SCH (09:32)
[2023-05-01] MEDS: INSULIN GLARGINE 100 UNITS/ML SUBCUT SCH ×2 (11:26→21:13)
[2023-05-01 12:00] VITALS: BP 118/84; PULSE 97; RESP 18; TEMP 98
[2023-05-01 16:00] VITALS: BP 115/80; PULSE 84; RESP 20; TEMP 97
[2023-05-01 20:00] VITALS: BP 117/69; PULSE 98; RESP 18; TEMP 97.7
[2023-05-01] MEDS: QUETIAPINE FUMARATE 50MG TABLET PO SCH (21:05)
[2023-05-01] MEDS: ATORVASTATIN CALCIUM 40MG TABLET PO SCH (21:06)
[2023-05-01] MEDS: QUETIAPINE FUMARATE 200MG TABLET PO SCH (21:06)
[2023-05-02] VITALS: PULSE 99; RESP 18; TEMP 97.2
[2023-05-02] MEDS: ACETAMINOPHEN 325MG TABLET PO PRN (02:06)
[2023-05-02] MEDS: BLOOD SUGAR DIAGNOSTIC STRIP TEST SCH (07:03)
[2023-05-02] MEDS: INSULIN LISPRO 100 UNITS/ML SUBCUT SCH (07:50)
[2023-05-02] MEDS: FAMOTIDINE 20MG TABLET PO SCH (09:00)
[2023-05-02] MEDS: INSULIN GLARGINE 100 UNITS/ML SUBCUT SCH (10:00)
[2023-05-02] MEDS: CLOPIDOGREL 75MG TABLET PO SCH (10:03)
[2023-05-02] MEDS: LOSARTAN 100 MG TABLET PO SCH (10:04)
[2023-05-02] MEDS: DIVALPROEX SODIUM 500MG DR TABLET PO SCH (10:04)
== END 2023-05-02 12:22 | disposition home health service (06) | DRG 420 ==
LOC: ER 19:38 → MICUSO 22:51 → CVICU 04-22 03:55 → 7WST 04-23 00:47 → 6EST 04-26 10:25 → 6WST 04-26 10:55
PROVIDERS: ADMIT Internal Medicine; ATTEND Internal Medicine
PROC: B54BZZA Ultrasonography of Right Lower Extremity Veins, Guidance (ICD-10-PCS; principal; 2023-04-21)
PROC: 06HY33Z Insertion of Infusion Device into Lower Vein, Percutaneous Approach (ICD-10-PCS; 2023-04-21)
DX: E11.10 Type 2 diabetes mellitus with ketoacidosis without coma (principal); J96.00 Acute respiratory failure, unspecified whether with hypoxia or hypercapnia; G93.41 Metabolic encephalopathy; E03.9 Hypothyroidism, unspecified; E78.5 Hyperlipidemia, unspecified; I10 Essential (primary) hypertension; F41.9 Anxiety disorder, unspecified; G47.10 Hypersomnia, unspecified; Z79.02 Long term (current) use of antithrombotics/antiplatelets; Z79.82 Long term (current) use of aspirin; Z86.73 Personal history of transient ischemic attack (TIA), and cerebral infarction without residual deficits
CPT/HCPCS: 36415; 36600; 71045; 80048; 80051; 80053; 82010; 82040; 82375; 82805; 82962; 83036; 83735; 83880; 83930; 84100; 84134; 84439; 84443; 84484; 85025; 93005; 94640; 99291; A6261; C9113; J0610; J1815; J1940; J2405; J3475; J3480; J3490; J7030; J7042; J7060

== ENCOUNTER 2023-05-04 12:39 | Emergency (ER) | payer MEDICAID ==
[~2023-05-04] VITALS: Ht 170.2 cm; Wt 89.0 kg
[2023-05-04 12:40] VITALS: BP 165/100; TEMP 98.7; O2SAT 98
[2023-05-04 12:52] VITALS: PULSE 118; RESP 20
[2023-05-04] MEDS ORDERED: CEPH500T MT ×2 (14:35→14:40)
== END 2023-05-04 15:53 | disposition left against medical advice (07) ==
LOC: ER 12:39
DX: R21 Rash and other nonspecific skin eruption (principal); E11.65 Type 2 diabetes mellitus with hyperglycemia; R10.31 Right lower quadrant pain; I25.2 Old myocardial infarction; I10 Essential (primary) hypertension; E11.9 Type 2 diabetes mellitus without complications; Z79.899 Other long term (current) drug therapy; Z86.73 Personal history of transient ischemic attack (TIA), and cerebral infarction without residual deficits
CPT/HCPCS: 82962; 99281; 99282

== ENCOUNTER 2024-07-07 15:17 | Inpatient (IN) | payer MEDICAID ==
[~2024-07-07] VITALS: Ht 162.6 cm; Wt 69.4 kg
[~2024-07-07 15:17] MED LIST changes: +ASPI-1406 PO; -ATOR40TA70 PO; -CLOP-31 PO; +COR12 PO; -CYAN100T43 PO; +DIVA-18 PO; -DIVA-75 PO; -DIVA500T3 PO; +EMPA10TA PO; +FAMO20TA8 PO; -FOLI-43 MT; +FOLI-43 PO; +INSU100I13 SQ; +LEVO88TA7 PO; +LIP40 PO; -LOSA-415 PO; +LOSA50TA41 PO; +METF-414 PO; -OXYB5TAB17 MT; +QUET200T30 PO; -QUET300T2 PO
[2024-07-07 17:35] LABS: BASOPHILS % 0.3 % (0.0-2.0); EOSINOPHILS % 0.1 % (0.0-5.0); HEMATOCRIT. 37.5 % (36.0-48.0); HEMOGLOBIN. 12.1 g/dL (12.0-16.0); LYMPHOCYTES % 12.6 % (20.0-50.0); MEAN CORPUSCULAR HEMOGLOBIN 30.9 pg (28.0-32.0); MEAN CORPUSCULAR HGB CONC 32.2 g/dL (31.0-37.0); MEAN CORPUSCULAR VOLUME 95.9 fL (81.0-99.0); MEAN PLATELET VOLUME 7.7 fl (7.4-10.4); MONOCYTES % 3.5 % (2.0-8.0); NEUTROPHILS % 83.5 % (40.0-76.0); PLATELET 495 x1000/uL (130-400); RED BLOOD CELL COUNT 3.91 mill/uL (4.2-5.4); RED CELL DISTRIBUTION WIDTH 18.4 % (11.6-14.6); WHITE BLOOD COUNT 12.2 x1000/uL (4.5-11.0)
[2024-07-07] MEDS: SODIUM CHLORIDE 0.9% 1,000 ML IV ONE ×3 (17:39→19:32)
[2024-07-07] MEDS ORDERED: ONDANSETRON HCL 4MG/2ML INJ IV PRN (19:00)
[2024-07-07] MEDS ORDERED: DOCUSATE SODIUM 100MG CAPSULE PO PRN (19:00)
[2024-07-07] MEDS ORDERED: GUAIFENESIN 200MG/10ML SUGAR FREE UDC PO PRN (19:00)
[2024-07-07] MEDS: CEFTRIAXONE 1GM/50ML 50 ML IV ONE (19:09)
[2024-07-07] MEDS: SODIUM CHLORIDE 0.9% 250 ML IV ONE (19:32)
[2024-07-07] MEDS: INSULIN GLARGINE 100 UNITS/ML SUBCUT SCH (22:00)
[2024-07-07] MEDS: QUETIAPINE FUMARATE 50MG TABLET PO SCH (22:00)
[2024-07-07] MEDS: RISPERIDONE 1MG TABLET PO SCH (22:01)
[2024-07-07] MEDS: BLOOD SUGAR DIAGNOSTIC STRIP TEST SCH (22:03)
[2024-07-07] MEDS: INSULIN LISPRO 100 UNITS/ML SUBCUT SCH (22:12)
[2024-07-07] MEDS: ATORVASTATIN CALCIUM 40MG TABLET PO SCH (22:57)
[2024-07-07] MEDS: ACETAMINOPHEN 325MG TABLET PO PRN (22:58)
[2024-07-08] MEDS: CARVEDILOL 12.5MG TABLET PO SCH (01:38)
[2024-07-08] MEDS: IPRATROPIUM BROMIDE (0.02%) 0.5MG/2.5ML NEB HHN SCH (02:00)
[2024-07-08 04:15] VITALS: BP 136/89; PULSE 100; RESP 18; TEMP 36.4736
[2024-07-08] MEDS: LEVOTHYROXINE SODIUM 88MCG TABLET PO SCH (06:26)
[2024-07-08 07:27] LABS: CARBON DIOXIDE 21 mEq/L (21-32); CHLORIDE 108 mEq/L (98-107); POTASSIUM 4.7 mEq/L (3.5-5.1); SODIUM 138 mEq/L (136-145)
[2024-07-08 07:28] LABS: CALCIUM 8.9 mg/dL (8.7-10.4)
[2024-07-08 07:30] LABS: TROPONIN I HIGH SENSITIVITY 12 ng/L (3.0-34)
[2024-07-08 07:33] LABS: GLUCOSE 110 mg/dL (70-105); THYROID STIMULATING HORMONE 0.16 uIU/mL (0.55-4.78)
[2024-07-08 07:49] LABS: BASOPHILS % 0.5 % (0.0-2.0); EOSINOPHILS % 1.1 % (0.0-5.0); HEMOGLOBIN. 10.6 g/dL (12.0-16.0); LYMPHOCYTES % 30.2 % (20.0-50.0); MEAN CORPUSCULAR HEMOGLOBIN 30.6 pg (28.0-32.0); MEAN CORPUSCULAR HGB CONC 31.3 g/dL (31.0-37.0); MEAN CORPUSCULAR VOLUME 97.7 fL (81.0-99.0); MEAN PLATELET VOLUME 8.4 fl (7.4-10.4); NEUTROPHILS % 59.2 % (40.0-76.0); PLATELET 450 x1000/uL (130-400); RED BLOOD CELL COUNT 3.48 mill/uL (4.2-5.4); RED CELL DISTRIBUTION WIDTH 17.1 % (11.6-14.6); WHITE BLOOD COUNT 8.6 x1000/uL (4.5-11.0)
[2024-07-08 08:00] VITALS: BP 131/82; PULSE 71; TEMP 36.89184; O2SAT 100
[2024-07-08 08:13] LABS: UREA NITROGEN BLOOD 6 mg/dL (9-23)
[2024-07-08] MEDS: MULTIVITAMINS,THER W-MINERALS TABLET PO SCH (10:12)
[2024-07-08] MEDS: ENOXAPARIN 40MG/0.4ML SYR SUBCUT SCH (10:13)
[2024-07-08] MEDS: FAMOTIDINE 20MG TABLET PO SCH (10:40)
[2024-07-08 12:00] VITALS: PULSE 110; RESP 20; TEMP 37.00296; O2SAT 99
[2024-07-08 16:00] VITALS: BP 137/82; PULSE 61; RESP 18; TEMP 36.3918; O2SAT 100
[2024-07-08] MEDS: CEFTRIAXONE 1GM/50ML 50 ML IV SCH (19:40)
[2024-07-08] MEDS: ACETAMINOPHEN 325MG TABLET PO PRN (21:57)
[2024-07-08] MEDS: ATORVASTATIN CALCIUM 40MG TABLET PO SCH (21:58)
[2024-07-09 12:02] VITALS: BP 144/78; PULSE 88; RESP 18; TEMP 37.00296; O2SAT 99
[2024-07-09 16:00] VITALS: BP 139/106; PULSE 108; RESP 18; TEMP 37.00296; O2SAT 99
[2024-07-09] MEDS: DIVALPROEX SODIUM 500MG DR TABLET PO SCH (20:30)
[2024-07-09 20:40] VITALS: PULSE 90; RESP 20; O2SAT 99
[2024-07-10 02:13] VITALS: PULSE 87; RESP 20; O2SAT 99
[2024-07-10 08:00] VITALS: BP 92/46; PULSE 70; RESP 16; TEMP 37.00296; O2SAT 98
[2024-07-10 09:33] VITALS: PULSE 92; RESP 20
[2024-07-10 14:54] VITALS: PULSE 95; RESP 20
[2024-07-10 16:00] VITALS: BP 120/78; PULSE 65; RESP 16; TEMP 36.89184; O2SAT 98
[2024-07-10 21:35] VITALS: BP 146/79; PULSE 114; RESP 20; TEMP 36.6696; O2SAT 100
[2024-07-11] VITALS (8 sets, daily range): BP systolic 97–146; BP diastolic 56–81; PULSE 78–112; RESP 18–20; TEMP 36.28068–36.6696; O2SAT 98–100
[2024-07-12] VITALS (7 sets, daily range): BP systolic 118–144; BP diastolic 70–85; PULSE 80–97; RESP 16–20; TEMP 36.114–36.72516; O2SAT 95–100
[2024-07-12 13:42] LABS: CLARITY URINE TURBID (CLEAR); COLOR URINE YELLOW (YELLOW); GLUCOSE URINE NEGATIVE (NEGATIVE); KETONES URINE NEGATIVE (NEGATIVE); LEUKOCYTE ESTERASE URINE 3+ (NEGATIVE); NITRITE URINE NEGATIVE (NEGATIVE); OCCULT BLOOD URINE 1+ (NEGATIVE); PH URINE 6.5 (4.5-8.0); PROTEIN URINE TRACE (NEGATIVE); SPECIFIC GRAVITY URINE 1.008 (1.005-1.030); UROBILINOGEN URINE 0.2 E.U./dL (0.2-1.0)
[2024-07-12 13:51] LABS: *AMPHETAMINES SCREEN URINE NEGATIVE (NEGATIVE); *BARBITURATES SCREEN URINE NEGATIVE (NEGATIVE); *BENZODIAZEPINES SCREEN URINE NEGATIVE (NEGATIVE); *COCAINE SCREEN URINE NEGATIVE (NEGATIVE); METHADONE URINE SCREEN NEGATIVE (NEGATIVE); OPIATES URINE SCREEN NEGATIVE (NEGATIVE)
[2024-07-12 13:52] LABS: CANNABINOID URINE SCREEN NEGATIVE (NEGATIVE); ECSTASY MDMA SCREEN URINE NEGATIVE (NEGATIVE); PHENCYCLIDINE URINE SCREEN NEGATIVE (NEGATIVE)
[2024-07-12 14:00] LABS: SQUAMOUS EPITHELIAL CELL URINE 3+ /lpf (RARE/1+)
[2024-07-12 14:02] LABS: WBC URINE 50-100 /hpf (0-2)
[2024-07-12 14:03] LABS: BACTERIA URINE 4+; YEAST URINE RARE
[2024-07-13 04:00] VITALS: BP 120/72; PULSE 104; RESP 18; TEMP 36.22512; O2SAT 99
[2024-07-13 08:00] VITALS: BP 145/86; PULSE 113; RESP 18; TEMP 36.44736; O2SAT 99
[2024-07-13] MEDS: SULFAMETHOXAZOLE/TRIMETHOPRIM 800/160MG TABLET PO SCH (09:00)
[2024-07-13] MEDS ORDERED: CEFTRIAXONE 1GM/50ML 50 ML IV SCH (10:00)
[2024-07-13 12:00] VITALS: BP 126/83; PULSE 93; RESP 18; TEMP 36.50292; O2SAT 96
[2024-07-13 20:00] VITALS: BP 146/94; PULSE 109; RESP 18; TEMP 36.61404; O2SAT 96
[2024-07-14] VITALS: BP 152/94; PULSE 96; RESP 19; TEMP 37.00296; O2SAT 99
[2024-07-14 04:00] VITALS: BP 121/73; PULSE 95; RESP 19; TEMP 36.55848; O2SAT 95
[2024-07-14] MEDS: LORAZEPAM 0.5MG TABLET PO PRN (09:31)
[2024-07-14 16:00] VITALS: BP 120/72; PULSE 80; RESP 19; TEMP 36.72516; O2SAT 97
[2024-07-14 20:19] VITALS: BP 148/91; PULSE 105; RESP 18; TEMP 36.78072; O2SAT 98
[2024-07-15 00:22] VITALS: BP 113/67; PULSE 90; RESP 20; TEMP 36.6696; O2SAT 100
[2024-07-15 04:17] VITALS: BP 97/62; PULSE 93; RESP 19; TEMP 36.44736; O2SAT 98
[2024-07-15 08:00] VITALS: BP 129/64; PULSE 92; RESP 18; TEMP 36.00288; O2SAT 99
[2024-07-15 12:00] VITALS: BP 122/66; PULSE 100; RESP 18; TEMP 35.94732; O2SAT 97
[2024-07-15 16:00] VITALS: BP 126/76; PULSE 94; RESP 18; TEMP 35.94732; O2SAT 100
[2024-07-15 20:00] VITALS: BP 127/76; PULSE 90; RESP 18; TEMP 36.22512; O2SAT 99
[2024-07-16] VITALS: BP 110/88; PULSE 84; RESP 18; TEMP 36.33624; O2SAT 100
[2024-07-16 04:00] VITALS: BP 130/74; PULSE 87; RESP 18; TEMP 36.33624; O2SAT 100
[2024-07-16] MEDS: METFORMIN HCL 500MG TABLET PO SCH (07:50)
[2024-07-16 08:00] VITALS: BP 138/74; PULSE 80; RESP 19; TEMP 36.78072; O2SAT 99
[2024-07-16] MEDS: EMPAGLIFLOZIN 10MG TABLET PO SCH (09:36)
[2024-07-16 12:00] VITALS: BP 128/69; PULSE 70; RESP 19; TEMP 36.28068; O2SAT 99
[2024-07-16 16:00] VITALS: BP 140/84; PULSE 78; RESP 19; TEMP 36.78072; O2SAT 99
[2024-07-16 20:00] VITALS: BP 133/69; PULSE 88; RESP 18; TEMP 36.114
[2024-07-16] MEDS: CLONIDINE 0.1MG TABLET PO PRN (20:50)
[2024-07-17] VITALS: BP 154/69; PULSE 88; RESP 18; TEMP 36.22512; O2SAT 100
[2024-07-17 04:00] VITALS: BP 152/88; PULSE 88; RESP 18; TEMP 36.22512
[2024-07-17 08:00] VITALS: BP 102/62; PULSE 93; RESP 18; TEMP 36.114; O2SAT 100
[2024-07-17 12:00] VITALS: BP 124/64; PULSE 87; RESP 20; TEMP 36.6696; O2SAT 100
[2024-07-17] MEDS: DEXTROSE 50% WATER 50ML SYRINGE IV PRN (14:16)
[2024-07-17 16:00] VITALS: BP 139/86; PULSE 95; RESP 20; TEMP 36.6696; O2SAT 100
[2024-07-17 20:00] VITALS: BP 127/89; PULSE 106; RESP 17; TEMP 36.00288; O2SAT 100
[2024-07-18] VITALS (7 sets, daily range): BP systolic 103–152; BP diastolic 64–83; PULSE 81–102; RESP 17–20; TEMP 35.89176–36.89184; O2SAT 98–100
[2024-07-19] VITALS: BP 116/77; PULSE 89; RESP 20; TEMP 36.55848
[2024-07-19 04:00] VITALS: BP 119/67; PULSE 89; RESP 20; TEMP 36.55848; O2SAT 100
[2024-07-19 08:00] VITALS: BP 111/79; PULSE 100; RESP 18; TEMP 36.72516; O2SAT 99
[2024-07-19] MEDS: FLUOXETINE HCL 10 MG CAPSULE PO SCH (09:13)
[2024-07-19 12:00] VITALS: BP 109/73; PULSE 90; RESP 18; TEMP 36.61404; O2SAT 100
[2024-07-19 16:00] VITALS: BP 104/65; PULSE 97; RESP 18; TEMP 36.50292; O2SAT 100
[2024-07-19 20:00] VITALS: BP 144/80; PULSE 90; RESP 18; TEMP 36.55848; O2SAT 92
[2024-07-20] VITALS: BP 138/72; PULSE 110; RESP 18; TEMP 36.61404; O2SAT 95
[2024-07-20 04:00] VITALS: BP 108/69; PULSE 83; RESP 18; TEMP 36.50292; O2SAT 97
[2024-07-20 08:00] VITALS: BP 144/66; PULSE 102; RESP 19; TEMP 37.00296; O2SAT 95
[2024-07-20 12:00] VITALS: BP 142/68; PULSE 100; RESP 19; TEMP 36.3918; O2SAT 97
[2024-07-20 16:00] VITALS: BP 117/66; PULSE 93; RESP 19; TEMP 36.28068; O2SAT 99
[2024-07-20 20:00] VITALS: BP 116/76; PULSE 96; RESP 16; TEMP 35.94732; O2SAT 100
[2024-07-21] VITALS: BP 108/60; PULSE 100; PULSE 94; RESP 18; TEMP 36.05844; TEMP 36.61404; O2SAT 100
[2024-07-21 04:00] VITALS: BP 117/81; PULSE 87; RESP 18; TEMP 36.16956; O2SAT 100
[2024-07-21 08:00] VITALS: BP 133/68; PULSE 86; RESP 20; TEMP 36.114; O2SAT 100
[2024-07-21 12:00] VITALS: BP 123/72; PULSE 86; RESP 20; TEMP 36.00288; O2SAT 99
[2024-07-21 16:00] VITALS: BP 128/60; PULSE 91; RESP 20; TEMP 36.00288; O2SAT 100
[2024-07-21 20:00] VITALS: BP 150/88; PULSE 94; RESP 18; TEMP 36.55848; O2SAT 100
[2024-07-22 08:00] VITALS: BP 127/83; PULSE 106; RESP 20; TEMP 36.22512; O2SAT 98
[2024-07-22 12:00] VITALS: BP 145/86; PULSE 125; RESP 22; TEMP 36.72516; O2SAT 99
[2024-07-22 16:00] VITALS: BP 132/81; PULSE 103; RESP 21; TEMP 36.72516; O2SAT 99
[2024-07-22 20:00] VITALS: BP 150/87; PULSE 107; RESP 19; TEMP 37.7808; O2SAT 99
[2024-07-23] VITALS: BP 148/89; PULSE 98; RESP 19; TEMP 37.16964; O2SAT 98
[2024-07-23 04:00] VITALS: BP 138/88; PULSE 88; RESP 19; TEMP 37.11408; O2SAT 98
[2024-07-23 08:00] VITALS: BP 106/56; PULSE 98; RESP 18; TEMP 36.33624; O2SAT 97
[2024-07-23 12:44] VITALS: BP 124/76; PULSE 100; RESP 18; TEMP 36.3918; O2SAT 97
[2024-07-23 16:00] VITALS: BP 118/82; PULSE 100; RESP 18; TEMP 36.33624; O2SAT 98
[2024-07-23 20:00] VITALS: BP 150/85; PULSE 103; RESP 18; TEMP 36.33624; O2SAT 97
[2024-07-24] VITALS: BP 152/82; PULSE 100; RESP 18; TEMP 36.22512
[2024-07-24 04:00] VITALS: BP 130/82; PULSE 85; RESP 18; TEMP 36.33624; O2SAT 100
[2024-07-24 08:00] VITALS: BP 92/62; PULSE 70; RESP 16; TEMP 36.28068; O2SAT 100
[2024-07-24 12:00] VITALS: BP 134/88; PULSE 92; RESP 19; TEMP 36.55848; O2SAT 99
[2024-07-24 16:00] VITALS: BP 113/71; PULSE 90; RESP 18; TEMP 36.83628; O2SAT 98
[2024-07-24 20:00] VITALS: BP 115/91; PULSE 111; RESP 20; TEMP 37.11408; O2SAT 96
[2024-07-25] VITALS: BP 115/76; PULSE 109; RESP 20; TEMP 36.72516; O2SAT 97
[2024-07-25 04:00] VITALS: BP 116/68; PULSE 97; RESP 19; TEMP 36.55848; O2SAT 98
[2024-07-25 08:00] VITALS: BP 142/87; PULSE 68; RESP 16; TEMP 36.33624; O2SAT 100
[2024-07-25 12:00] VITALS: BP 132/84; PULSE 98; RESP 16; TEMP 36.33624; O2SAT 100
[2024-07-25 16:00] VITALS: BP 110/65; PULSE 91; RESP 18; TEMP 36.3918; O2SAT 100
[2024-07-25 20:00] VITALS: BP 101/82; PULSE 85; RESP 18; TEMP 36.22512; O2SAT 100
[2024-07-25] MEDS: QUETIAPINE FUMARATE 50MG TABLET PO SCH (21:09)
[2024-07-26 04:00] VITALS: BP 152/70; PULSE 76; RESP 18; TEMP 36.78072; O2SAT 100
[2024-07-26 08:00] VITALS: BP 93/52; PULSE 71; RESP 16; TEMP 36.55848; O2SAT 100
[2024-07-26] MEDS: FLUOXETINE HCL 10 MG CAPSULE PO SCH (08:42)
[2024-07-26 12:00] VITALS: BP 104/67; PULSE 64; RESP 18; TEMP 36.78072; O2SAT 96
[2024-07-26 16:00] VITALS: BP 115/64; PULSE 93; RESP 17; TEMP 36.28068; O2SAT 100
[2024-07-26 20:00] VITALS: BP 122/68; PULSE 65; RESP 18; TEMP 36.22512; O2SAT 100
[2024-07-27 04:00] VITALS: BP 117/77; PULSE 73; RESP 18; TEMP 36.16956; O2SAT 95
[2024-07-27 08:00] VITALS: BP 104/71; PULSE 89; RESP 18; TEMP 36.114; O2SAT 99
[2024-07-27 12:00] VITALS: BP 138/80; PULSE 94; RESP 20; TEMP 36.114; O2SAT 100
[2024-07-27 16:00] VITALS: BP 137/94; PULSE 129; RESP 18; TEMP 36.6696; O2SAT 99
[2024-07-27 20:00] VITALS: BP 146/51; PULSE 75; RESP 18; TEMP 36.55848; O2SAT 91; O2SAT 99
[2024-07-28] VITALS: BP 145/65; PULSE 76; RESP 18; TEMP 36.61404; O2SAT 90
[2024-07-28 04:00] VITALS: BP 142/72; PULSE 76; RESP 18; TEMP 36.50292; O2SAT 90
[2024-07-28 08:04] VITALS: BP 120/52; PULSE 94; RESP 20; TEMP 36.114; O2SAT 99
[2024-07-28 12:00] VITALS: BP 98/62; PULSE 89; RESP 20; TEMP 36.6696; O2SAT 99
[2024-07-28 20:00] VITALS: BP 126/72; PULSE 90; RESP 18; TEMP 36.28068; O2SAT 96
[2024-07-29 04:00] VITALS: BP 129/79; PULSE 93; RESP 18; TEMP 36.55848; O2SAT 97
[2024-07-29 08:00] VITALS: BP 137/71; PULSE 97; RESP 16; TEMP 36.22512; O2SAT 99
[2024-07-29 12:00] VITALS: BP 105/74; PULSE 92; RESP 18; TEMP 36.16956; O2SAT 99
[2024-07-29 20:00] VITALS: BP 126/75; PULSE 92; RESP 18; TEMP 36.78072; O2SAT 100
[2024-07-30] VITALS: BP 125/81; PULSE 84; RESP 18; TEMP 36.61404; O2SAT 100
[2024-07-30 04:00] VITALS: BP 118/85; PULSE 82; RESP 17; TEMP 36.05844; O2SAT 95
[2024-07-30 08:00] VITALS: BP 131/86; PULSE 89; RESP 18; TEMP 36.28068; O2SAT 97
[2024-07-30 12:00] VITALS: BP 106/58; PULSE 90; RESP 18; TEMP 36.6696; O2SAT 100
[2024-07-30 16:00] VITALS: BP 100/60; PULSE 94; RESP 18; TEMP 36.61404; O2SAT 97
[2024-07-30 20:00] VITALS: BP 120/89; PULSE 113; RESP 18; TEMP 36.33624
[2024-07-31 04:00] VITALS: BP 97/75; PULSE 97; RESP 18; TEMP 36.44736; O2SAT 100
[2024-07-31 08:00] VITALS: BP 108/62; PULSE 98; RESP 18; TEMP 36.114; O2SAT 98
[2024-07-31] MEDS: FLUOXETINE HCL 20MG CAPSULE PO SCH (09:22)
[2024-07-31 12:00] VITALS: BP 94/57; PULSE 93; RESP 18; TEMP 36.114; O2SAT 100
[2024-07-31 20:00] VITALS: BP 109/66; PULSE 106; RESP 18; TEMP 36.00288; O2SAT 100
[2024-08-01] VITALS: BP 110/68; PULSE 102; RESP 18; TEMP 36.05844; O2SAT 100
[2024-08-01 04:00] VITALS: BP 144/60; PULSE 79; RESP 17; TEMP 36.22512; O2SAT 98
[2024-08-01 12:00] VITALS: BP 97/60; PULSE 91; RESP 19; TEMP 36.114; O2SAT 97
[2024-08-01 16:00] VITALS: BP 120/65; PULSE 85; RESP 20; TEMP 35.61396; O2SAT 98
[2024-08-01 20:00] VITALS: BP 92/60; PULSE 72; RESP 18; TEMP 36.05844; O2SAT 96
[2024-08-01] MEDS: RISPERIDONE 1MG TABLET PO SCH (21:38)
[2024-08-02 04:00] VITALS: BP 98/55; PULSE 101; RESP 18; TEMP 37.11408; O2SAT 100
[2024-08-02 08:00] VITALS: BP 128/66; PULSE 103; RESP 18; TEMP 36.6696; O2SAT 100
[2024-08-02 12:00] VITALS: BP 127/54; PULSE 90; RESP 18; TEMP 36.114; O2SAT 100
[2024-08-02 16:00] VITALS: BP 131/84; PULSE 86; RESP 20; TEMP 36.6696; O2SAT 100
[2024-08-02 20:42] VITALS: BP 108/66; PULSE 93; RESP 18; TEMP 36.114; O2SAT 100
[2024-08-03] VITALS: BP 110/69; PULSE 96; RESP 18; TEMP 36.22512; O2SAT 96
[2024-08-03 04:00] VITALS: BP 141/66; PULSE 97; RESP 18; TEMP 36.22512
[2024-08-03 08:00] VITALS: BP 131/76; PULSE 98; RESP 18; TEMP 36.6696; O2SAT 100
[2024-08-03 12:00] VITALS: BP 102/60; PULSE 84; RESP 2; TEMP 36.114; O2SAT 100
[2024-08-03 16:00] VITALS: BP 152/95; PULSE 91; RESP 18; TEMP 36.6696; O2SAT 100
[2024-08-03 20:00] VITALS: BP 108/70; PULSE 103; RESP 20; TEMP 36.114; O2SAT 100
[2024-08-04] VITALS: BP 110/74; PULSE 76; RESP 18; TEMP 36.33624; O2SAT 99
[2024-08-04 04:00] VITALS: BP 100/67; PULSE 95; RESP 18; TEMP 36.22512; O2SAT 97
[2024-08-04 08:00] VITALS: BP 119/80; PULSE 96; RESP 18; TEMP 36.6696; O2SAT 100
[2024-08-04 12:00] VITALS: BP 124/62; PULSE 87; RESP 18; TEMP 32.7804; O2SAT 100
[2024-08-04 16:00] VITALS: BP 129/69; PULSE 84; RESP 18; TEMP 36.6696; O2SAT 100
[2024-08-04 20:00] VITALS: BP 119/59; PULSE 72; RESP 18; TEMP 36.50292; O2SAT 100
[2024-08-05] VITALS: BP 121/61; PULSE 18; RESP 17; TEMP 36.55848; O2SAT 100
[2024-08-05 04:00] VITALS: PULSE 93; RESP 18; TEMP 36.00288; O2SAT 99
[2024-08-05] MEDS ORDERED: INSULIN LISPRO 100 UNITS/ML SUBCUT SCH (07:50)
[2024-08-05 08:00] VITALS: BP 134/69; PULSE 95; RESP 18; TEMP 36.05844; O2SAT 100
[2024-08-05] MEDS: BLOOD SUGAR DIAGNOSTIC STRIP TEST SCH (08:37)
[2024-08-05] MEDS: INSULIN LISPRO 100 UNITS/ML SUBCUT SCH (08:39)
[2024-08-05 12:00] VITALS: BP 139/83; PULSE 87; RESP 20; TEMP 36.6696; O2SAT 98
[2024-08-05] MEDS: ACETAMINOPHEN 325MG TABLET PO PRN (13:22)
[2024-08-05 16:00] VITALS: BP 138/86; PULSE 92; RESP 18; TEMP 36.89184; O2SAT 97
[2024-08-05 19:01] LABS: HEMATOCRIT 39.9 % (36.0-48.0); HEMOGLOBIN 12.6 g/dL (12.0-16.0); MEAN CORPUSCULAR HEMOGLOBIN 30.5 pg (28.0-32.0); MEAN CORPUSCULAR HGB CONC 31.5 g/dL (31.0-37.0); MEAN CORPUSCULAR VOLUME 96.8 fL (81.0-99.0); PLATELET 155 x1000/uL (130-400); RED BLOOD CELL COUNT 4.12 mill/uL (4.2-5.4)
[2024-08-05 19:07] LABS: CHLORIDE 102 mEq/L (98-107); POTASSIUM 5.4 mEq/L (3.5-5.1); SODIUM 134 mEq/L (136-145)
[2024-08-05 19:08] LABS: CARBON DIOXIDE 26 mEq/L (21-32)
[2024-08-05 19:09] LABS: CALCIUM 9.2 mg/dL (8.7-10.4)
[2024-08-05 19:13] LABS: CREATININE 1.1 mg/dL (0.6-1.0); GLUCOSE 369 mg/dL (70-105)
[2024-08-05 19:23] LABS: UREA NITROGEN BLOOD < 5 mg/dL (9-23)
[2024-08-05 20:00] VITALS: BP 149/92; PULSE 102; RESP 18; TEMP 36.78072; O2SAT 98
[2024-08-05] MEDS: INSULIN GLARGINE 100 UNITS/ML SUBCUT SCH (22:00)
[2024-08-06] VITALS: BP 124/83; PULSE 95; RESP 18; TEMP 38.0586; O2SAT 100
[2024-08-06 08:00] VITALS: BP 120/92; PULSE 110; RESP 18; TEMP 36.61404; O2SAT 99
[2024-08-06] MEDS ORDERED: CALCIUM GLUCONATE 1GM PREMIX 50ML IV ONE (10:15)
[2024-08-06] MEDS ORDERED: CALCIUM GLUCONATE 100MG/ML 10ML VIAL IV NR (10:30)
[2024-08-06 12:00] VITALS: BP 131/68; PULSE 101; RESP 20; TEMP 36.114; O2SAT 99
[2024-08-06] MEDS: INSULIN REGULAR (HUMULIN R) 1000UNITS/10ML VIAL IV NR (12:59)
[2024-08-06] MEDS: CALCIUM GLUCONATE 1GM PREMIX 50ML IV NR (13:00)
[2024-08-06] MEDS: SODIUM BICARBONATE 8.4% 50MEQ/50ML SYR IV NR (13:00)
[2024-08-06 16:00] VITALS: BP 127/75; PULSE 104; RESP 20; TEMP 36.78072; O2SAT 98
[2024-08-06 20:00] VITALS: BP 113/70; PULSE 107; RESP 19; TEMP 36.9474; O2SAT 100
[2024-08-07 04:00] VITALS: BP 103/65; PULSE 136; RESP 19; TEMP 37.05852; O2SAT 99
[2024-08-07 08:00] VITALS: BP 116/84; PULSE 122; RESP 18; TEMP 36.05844; O2SAT 100
[2024-08-07 12:00] VITALS: BP 115/66; PULSE 114; RESP 20; TEMP 36.3918; O2SAT 100
[2024-08-07 12:07] LABS: CHLORIDE 100 mEq/L (98-107); POTASSIUM 5.3 mEq/L (3.5-5.1); SODIUM 132 mEq/L (136-145)
[2024-08-07 12:08] LABS: CARBON DIOXIDE 28 mEq/L (21-32)
[2024-08-07 12:13] LABS: GLUCOSE 289 mg/dL (70-105); UREA NITROGEN BLOOD 9 mg/dL (9-23)
[2024-08-07 16:00] VITALS: BP 109/69; PULSE 102; RESP 19; TEMP 36.9474; O2SAT 100
[2024-08-08 08:00] VITALS: BP 99/64; PULSE 136; RESP 20; TEMP 36.28068; O2SAT 100
[2024-08-08 12:00] VITALS: BP 111/69; PULSE 119; RESP 20; TEMP 36.05844; O2SAT 100
[2024-08-08 16:00] VITALS: BP 104/74; PULSE 126; RESP 20; TEMP 36.05844; O2SAT 100
[2024-08-08 20:00] VITALS: BP 112/74; PULSE 95; RESP 18; TEMP 36.6696; O2SAT 99
[2024-08-09 04:00] VITALS: BP 132/84; PULSE 126; RESP 18; TEMP 36.05844; O2SAT 95
[2024-08-09] MEDS: LEVOTHYROXINE SODIUM 88MCG TABLET PO SCH (06:41)
[2024-08-09 08:00] VITALS: BP 146/75; PULSE 108; RESP 19; TEMP 36.44736; O2SAT 99
[2024-08-09 12:00] VITALS: BP 108/69; PULSE 105; RESP 19; TEMP 36.50292; O2SAT 99
[2024-08-09 16:00] VITALS: BP 130/66; PULSE 76; RESP 19; TEMP 36.55848; O2SAT 99
[2024-08-10] VITALS: BP 129/82; PULSE 104; RESP 20; TEMP 36.44736; O2SAT 99
[2024-08-10 04:00] VITALS: BP 122/76; PULSE 109; RESP 19; TEMP 36.6696; O2SAT 98
[2024-08-10 08:00] VITALS: BP 128/81; PULSE 94; RESP 20; TEMP 36.9474; O2SAT 100
[2024-08-10 12:00] VITALS: BP_SYST 130; BP_SYST 141; BP_DIAS 67; BP_DIAS 68; PULSE 66; RESP 18; TEMP 36.78072; O2SAT 100
[2024-08-10 16:00] VITALS: BP 145/90; PULSE 100; RESP 18; TEMP 37.05852; O2SAT 100
[2024-08-10 20:00] VITALS: BP 116/78; PULSE 108; RESP 19; TEMP 36.33624; O2SAT 99
[2024-08-11] VITALS: BP 132/94; PULSE 126; RESP 19; TEMP 36.50292; O2SAT 100
[2024-08-11 04:00] VITALS: BP 120/79; PULSE 101; RESP 19; TEMP 36.33624; O2SAT 98
[2024-08-11 08:00] VITALS: BP 123/80; PULSE 103; RESP 19; TEMP 36.50292; O2SAT 99
[2024-08-11 10:45] LABS: MEAN CORPUSCULAR HEMOGLOBIN 30.8 pg (28.0-32.0); MEAN CORPUSCULAR HGB CONC 32.2 g/dL (31.0-37.0); MEAN CORPUSCULAR VOLUME 95.7 fL (81.0-99.0); PLATELET 287 x1000/uL (130-400); RED BLOOD CELL COUNT 3.55 mill/uL (4.2-5.4); RED CELL DISTRIBUTION WIDTH 17.4 % (11.6-14.6); WHITE BLOOD COUNT 12.5 x1000/uL (4.5-11.0)
[2024-08-11 10:51] LABS: CHLORIDE 99 mEq/L (98-107); POTASSIUM 4.5 mEq/L (3.5-5.1); SODIUM 132 mEq/L (136-145)
[2024-08-11 10:52] LABS: CARBON DIOXIDE 26 mEq/L (21-32)
[2024-08-11 10:57] LABS: GLUCOSE 319 mg/dL (70-105); UREA NITROGEN BLOOD 6 mg/dL (9-23)
[2024-08-11 11:00] LABS: T4 FREE 1.25 ng/dL (0.89-1.76)
[2024-08-11 12:00] VITALS: BP 119/70; PULSE 98; RESP 19; TEMP 36.28068; O2SAT 100
[2024-08-11 16:00] VITALS: BP 118/68; PULSE 90; RESP 19; TEMP 36.78072; O2SAT 98
[2024-08-11 20:00] VITALS: BP 129/84; PULSE 101; RESP 18; TEMP 36.114; O2SAT 99
[2024-08-12] VITALS: BP 135/81; PULSE 99; RESP 18; TEMP 36.50292; O2SAT 99
[2024-08-12 04:00] VITALS: BP 125/83; PULSE 98; RESP 18; TEMP 36.28068; O2SAT 99
[2024-08-12 08:00] VITALS: BP 132/78; PULSE 99; RESP 16; TEMP 36.89184; O2SAT 100
[2024-08-12 12:00] VITALS: BP 154/91; PULSE 102; RESP 20; TEMP 36.78072; O2SAT 100
[2024-08-12 16:00] VITALS: BP 140/86; PULSE 98; RESP 17; TEMP 36.83628; O2SAT 100
[2024-08-12 20:00] VITALS: BP 136/85; PULSE 117; RESP 18; TEMP 36.50292; O2SAT 98
[2024-08-13 08:00] VITALS: BP 129/79; PULSE 93; RESP 18; TEMP 36.16956; O2SAT 100
[2024-08-13 09:37] VITALS: PULSE 88; RESP 16
[2024-08-13] MEDS: IPRATROPIUM/ALBUTEROL 0.5-3(2.5)MG/3ML NEB HHN PRN (09:37)
[2024-08-13 12:00] VITALS: BP 169/98; PULSE 82; RESP 19; TEMP 36.44736; O2SAT 95
[2024-08-13 16:00] VITALS: BP 148/88; PULSE 96; RESP 19; TEMP 36.16956; O2SAT 95
[2024-08-13 20:00] VITALS: BP 164/90; PULSE 105; RESP 18; TEMP 36.72516; O2SAT 96
[2024-08-14] VITALS (7 sets, daily range): BP systolic 107–137; BP diastolic 63–74; PULSE 95–105; RESP 18–20; TEMP 36.28068–36.89184; O2SAT 95–100
[2024-08-15] VITALS (7 sets, daily range): BP systolic 126–169; BP diastolic 66–99; PULSE 76–107; RESP 18–19; TEMP 36.114–36.89184; O2SAT 95–100
[2024-08-15] MEDS: ACETAMINOPHEN 500MG TABLET PO PRN (18:33)
[2024-08-15] MEDS: CLONIDINE 0.1MG TABLET PO PRN (21:42)
[2024-08-16 04:00] VITALS: BP 159/85; PULSE 83; RESP 18; TEMP 36.3918; O2SAT 100
[2024-08-16 08:00] VITALS: BP 140/79; PULSE 97; RESP 18; TEMP 36.9474; O2SAT 100
[2024-08-16 12:00] VITALS: BP 138/84; PULSE 95; RESP 20; TEMP 36.78072; O2SAT 100
[2024-08-16 16:00] VITALS: BP 138/78; PULSE 92; RESP 20; TEMP 36.72516; O2SAT 99
[2024-08-16 20:00] VITALS: BP 122/71; PULSE 102; RESP 18; TEMP 37.05852; O2SAT 99
[2024-08-17] VITALS: BP 113/62; PULSE 115; RESP 18; TEMP 36.89184; O2SAT 99
[2024-08-17 08:00] VITALS: BP 112/82; PULSE 120; RESP 20; TEMP 36.6696; O2SAT 100
[2024-08-17 12:00] VITALS: BP 139/80; PULSE 118; RESP 16; TEMP 36.78072; O2SAT 100
[2024-08-17 16:00] VITALS: BP 143/88; PULSE 98; RESP 19; TEMP 36.83628; O2SAT 100
[2024-08-17] MEDS ORDERED: METFORMIN HCL 500MG TABLET PO SCH (17:30)
[2024-08-17 20:00] VITALS: BP 173/87; PULSE 89; RESP 18; TEMP 37.00296; O2SAT 100
[2024-08-18] VITALS: BP 114/68; PULSE 91; RESP 18; TEMP 37.11408; O2SAT 100
[2024-08-18 08:00] VITALS: BP 122/88; PULSE 111; RESP 19; TEMP 36.6696; O2SAT 98
[2024-08-18 12:00] VITALS: BP 156/89; PULSE 99; RESP 19; TEMP 36.83628; O2SAT 99
[2024-08-18 16:00] VITALS: BP 137/69; PULSE 95; RESP 19; TEMP 36.78072; O2SAT 100
[2024-08-18 20:00] VITALS: BP 135/76; PULSE 89; RESP 18; TEMP 36.33624; O2SAT 100
[2024-08-19] VITALS: BP 143/89; PULSE 88; RESP 18; TEMP 36.22512; O2SAT 100
[2024-08-19 04:00] VITALS: BP 125/60; PULSE 88; RESP 18; TEMP 36.61404; O2SAT 97
[2024-08-19 08:00] VITALS: BP 116/74; PULSE 92; RESP 14; TEMP 36.22512; O2SAT 96
[2024-08-19 12:00] VITALS: BP 141/85; PULSE 92; RESP 18; TEMP 36.00288; O2SAT 99
[2024-08-19 16:00] VITALS: BP 130/69; PULSE 87; RESP 14; TEMP 37.05852; O2SAT 100
[2024-08-19] MEDS ORDERED: KETOROLAC 30MG/ML VIAL IV PRN (17:00)
[2024-08-19 20:00] VITALS: BP 144/79; PULSE 82; RESP 17; TEMP 36.9474; O2SAT 100
[2024-08-20 04:00] VITALS: BP 157/81; PULSE 106; RESP 17; TEMP 37.00296; O2SAT 99
[2024-08-20 08:00] VITALS: BP 139/86; PULSE 103; RESP 15; TEMP 36.55848; O2SAT 99
[2024-08-20 12:00] VITALS: BP 149/93; PULSE 53; RESP 17; TEMP 35.61396; O2SAT 100
[2024-08-20] MEDS ORDERED: TRAZODONE HCL 50MG TABLET PO SCH (21:00)
== END 2024-08-20 15:10 | disposition home health service (06) | DRG 720 ==
LOC: ER 15:17 → EDBEDREQ 16:37 → 5WST 18:36 → EDBEDREQ 18:39 → 5WST 07-08 02:37 → EDBEDREQSVC 07-11 07:48 → 6WST 07-11 11:00 → 8EST 08-09 04:00
PROVIDERS: ADMIT Internal Medicine; ATTEND Internal Medicine
DX: A41.9 Sepsis, unspecified organism (principal); L89.153 Pressure ulcer of sacral region, stage 3; K86.3 Pseudocyst of pancreas; L89.313 Pressure ulcer of right buttock, stage 3; K76.0 Fatty (change of) liver, not elsewhere classified; Z20.822 Contact with and (suspected) exposure to COVID-19; E03.9 Hypothyroidism, unspecified; E11.65 Type 2 diabetes mellitus with hyperglycemia; I25.10 Atherosclerotic heart disease of native coronary artery without angina pectoris; K86.1 Other chronic pancreatitis; Z53.29 Procedure and treatment not carried out because of patient's decision for other reasons; Z59.00 Homelessness unspecified; J44.9 Chronic obstructive pulmonary disease, unspecified; I10 Essential (primary) hypertension; G47.00 Insomnia, unspecified; E78.5 Hyperlipidemia, unspecified; E87.5 Hyperkalemia; N39.0 Urinary tract infection, site not specified; R91.1 Solitary pulmonary nodule; F31.30 Bipolar disorder, current episode depressed, mild or moderate severity, unspecified; F43.20 Adjustment disorder, unspecified; I25.2 Old myocardial infarction; Z86.73 Personal history of transient ischemic attack (TIA), and cerebral infarction without residual deficits; Z91.148 Patient's other noncompliance with medication regimen for other reason; Z98.891 History of uterine scar from previous surgery; Z79.4 Long term (current) use of insulin; Z79.899 Other long term (current) drug therapy; Z91.199 Patient's noncompliance with other medical treatment and regimen due to unspecified reason
CPT/HCPCS: 36415; 71045; 80048; 80305; 81003; 82962; 83735; 84439; 84443; 84484; 85025; 85027; 87426; 93005; 94070; 94640; 97116; 97162; 97166; 97535; 99291; A4606; A4663; A6261; C1893; J0610; J0696; J1650; J1815; J3490; J7030; J7050